=== PATIENT | male | born 1950 | race Caucasian/White ===

== ENCOUNTER → 2019-06-03 13:59 | Outpatient (CLI) | payer MEDICARE, SELFPAY ==
--- NOTE | ~2019-06-03 | XR_ITS ---
EXAMINATION: XR chest 2V EXAM DATE: 06/03/2019 14:09 INDICATION: Encounter for preprocedural exam. TECHNIQUE: Frontal and lateral projections of the chest obtained and reviewed. Comparison is made to prior examination from 12/30/2015. FINDINGS: The lungs are clear. There are no pleural effusions. The cardiomediastinal silhouette is within normal limits. There is no pneumothorax suspected. The bones and soft tissues are unremarkab le. IMPRESSION: No acute cardiopulmonary findings. Reviewed, dictated and finalized at location B. E WORKER
== END ==
PROVIDERS: PCP Family Medicine; Visit Provider Family Medicine
DX: Z01.818 Encounter for other preprocedural examination (principal)
CPT/HCPCS: 71046

== ENCOUNTER 2019-06-11 09:46 | Outpatient (CLI) | payer MEDICARE, SELFPAY ==
--- NOTE | 2019-06-11 10:03 | ECG_ITS ---
Measurements Intervals [place] Rate: 78 P: 23 KS: 173 QRS: 73 QRSD: 103 T: 75 QT: 371 QTc: 424 Interpretive Statements SINUS RHYTHM BORDERLINE T WAVE ABNORMALITY- LATERAL LEADS BORDERLINE ECG Electronically Signed On 06-11-2019 10:25:05 MOLD PRESSER by Harry López D.O.
== END 2019-06-11 09:47 | disposition home or self-care (01) ==
PROVIDERS: PCP Family Medicine; Visit Provider Family Medicine
DX: I10 Essential (primary) hypertension (principal); R94.31 Abnormal electrocardiogram [ECG] [EKG]
CPT/HCPCS: 93005

== ENCOUNTER → 2019-12-26 09:56 | Outpatient (CLI) | payer MEDICARE, SELFPAY ==
--- NOTE | ~2019-12-26 | CT_ITS ---
EXAMINATION: CT abdomen pelvis w con INDICATION: Prostate cancer TECHNIQUE: Computed tomographic images of the abdomen and pelvis were obtained after the administrati on of 100 cc of Omnipaque 350 intravenous contrast. The dose-length product (DLP) was 1021.19 mGy-cm. Automated exposure control and iterative reconstruction technique were employed. COMPARISON: None available FINDINGS: The lung bases are clear. The heart size is normal. The liver, spleen, pancreas, gallbladde r, and adrenal glands are normal. Cysts of the kidneys measure up to 13.9 cm on the left and 2.2 cm o n the right. No pathologically enlarged abdominal or pelvic lymph nodes are identified. There is no f ree intraperitoneal gas or evidence of bowel obstruction. There is calcified atherosclerosis of the a john and many of the other arteries. There are changes of bilateral hip arthroplasty. There is severe lumbar spondylosis at L4-5. IMPRESSION: 1. No evidence of metastatic disease. Reviewed, dictated and finalized at location A.
[2019-12-26 10:21] LABS: Estimated Glomerular Filt Rate > 60
== END ==
PROVIDERS: PCP Family Medicine; Visit Provider Urology
DX: C61 Malignant neoplasm of prostate (principal)
CPT/HCPCS: 74177; Q9967

== ENCOUNTER → 2020-08-10 02:00 | Outpatient (CLI) | payer MEDICARE, SELFPAY ==
[2020-08-10 19:04] LABS: SARS-CoV-2 RNA PCR Negative
== END ==
PROVIDERS: PCP Family Medicine; Visit Provider Internal Medicine Gastroenterology
DX: Z01.812 Encounter for preprocedural laboratory examination (principal); Z20.822 Contact with and (suspected) exposure to COVID-19
CPT/HCPCS: C9803; U0003; U0005

== ENCOUNTER 2020-08-13 01:32 | Day surgery (SDC) | payer MEDICARE, SELFPAY ==
[2020-07-31 14:27] VITALS: BMI 28.9
[2020-08-13 07:36] LABS: Glucose Point of Care 124 (65-105)
[2020-08-13] MEDS: LACTATED RINGERS 1,000 ML 150 ML IV CONT (07:36)
[2020-08-13 07:47] VITALS: BP 143/87; PULSE 70; RESP 18; TEMP 36.3; O2SAT 97; BMI 28.9
--- NOTE | 2020-08-13 07:54 | WPDANESEPPF ---
Anes - Initial Pre Proc Eval Procedure: Operation Date: 08/13/20 09:15 Proposed Procedures p Colonoscopy - Yoandy Soriano DO Date/Time: 08/13/20 07:54 Surgeon: Yoandy Soriano DO Pre Op Diagnosis: Colon polyps Patient Data Age: 69 Gender: M Height: 6 ft Weight: 96.8 kg Last Vital Signs Temp 36.3 C L 08/13/20 07:47 Pulse 70 08/13/20 07:47 Resp 18 08/13/20 07:47 BP 143/87 H 08/13/20 07:47 Pulse Ox 97 08/13/20 07:47 Allergies Allergy/AdvReac Type Severity Reaction Status Date / Time No Known Allergies Allergy Verified 08/13/20 07:18 Home Medications Medication Instructions Recorded Confirmed Type simvastatin 20 mg tablet 20 mg PO DAILY #90 tablet 12/29/19 08/13/20 Rx zolpidem 10 mg tablet 10 mg PO .HS PRN #90 tablet 05/04/20 07/31/20 Rx fluticasone propionate 50 See Rx Instructions .ROUTE 08/10/20 08/13/20 Rx mcg/actuation nasal .COMPLEX #48 gm spray,suspension metformin 500 mg tablet See Rx Instructions .ROUTE 08/10/20 08/13/20 Rx .COMPLEX #360 tablet tramadol 50 mg tablet 50 mg PO Q6H PRN #100 tablet 08/10/20 08/13/20 Rx glimepiride 1 mg PO QAM PRN 08/13/20 07/31/20 History Laboratory Tests 08/13/20 07:31 POC Capillary Glucose 124 mg/dl H mg/dl (65-105) Patient hx anesthesia problems: none Family hx anesthesia problems: none PMFSH Past Medical History Medical History Alcohol abuse Depression Insomnia Obstructive sleep apnea syndrome Pure hypercholesterolemia Squamous cell carcinoma of forehead Family History Family History Father Cerebrovascular accident Family history of lung cancer Patient's father is Family history of malignant neoplasm Mother Carcinoma of colon Family history of malignant neoplasm Sibling Family history of malignant neoplasm Other Diabetes mellitus Family history of arthritis Family history of cardiovascular disease Social History Social History Smoking status: Former smoker Tobacco type: cigarettes Second hand tobacco smoke exposure: No Smoking end date: 04/24/96 Alcohol intake: current Drinks per week: 7 Substance use: never Substance use type: does not use Living arrangements: with family Gender identity (if verbalized by the patient): Male Sexual Orientation (if Verbalized by the Patient): Straight or Heterosexual Spiritual care concerns: No Agree to blood products: Yes Anes - Eval Final PreProcedure Day of Procedure 08/13/20 07:54 Patient weight: overweight Heart: regular rate and rhythm Lungs: clear to auscultation Airway: Mallampati scale class II Neurological: alert and oriented Last oral intake: >/= 8 hours ASA classification: III Emergent: no Anesthetic plan: proceed Anesthesia type and monitoring: general GIVS and standard monitoring Informed Consent: The patient's anesthetic plan and its attendant risks and benefits were discussed with the patient/family/POA. Questions were solicited and answers provided to the satisfaction of the patient/family/POA.
--- NOTE | 2020-08-13 07:56 | WPDGICN ---
GI Consult Note Consult date/time: 08/13/20 07:56 HPI: Reason for visit colonoscopy. This very pleasant gentleman seen in consultation request of the primary physician. Impression: Screening and surveillance colonoscopy. The patient history adenomatous colon polyps and a family history colon cancer. DM. HLD. Neuropathy. Alcohol abuse. Depression. HOMAR. Skin cancer. Recommendation: Colonoscopy. History: Very pleasant gentleman is here for screening and surveillance colonoscopy. He has a history adenomatous colon polyps and a family history colon cancer. GI review systems is negative. Physical examination: General: very pleasant patient in no acute distress. HEENT: Head was normocephalic sclerae is clear mouth without masses neck was supple. Heart: Rate rhythm regular without S3 or S4. Lungs: CTA. Abdomen: Soft with no guarding or rigidity. Bowel sounds were active. Neurologic: Cranial nerves 2 through 12 intact. No focal defects. No clonus. Musculoskeletal system: Revealed no joint tenderness or swelling no muscle atrophy. Extremities: Reveal no significant edema. Skin: Warm and dry with normal turgor. Mental status: intact. Patient is alert and oriented. Review of Systems Review of Systems: All systems reviewed & are unremarkable except as noted in HPI and below PMFSH Past Medical History Medical History Alcohol abuse Depression Insomnia Obstructive sleep apnea syndrome Pure hypercholesterolemia Squamous cell carcinoma of forehead Family History Family History Father Cerebrovascular accident Family history of lung cancer Patient's father is Family history of malignant neoplasm Mother Carcinoma of colon Family history of malignant neoplasm Sibling Family history of malignant neoplasm Other Diabetes mellitus Family history of arthritis Family history of cardiovascular disease Social History Social History Smoking status: Former smoker Tobacco type: cigarettes Second hand tobacco smoke exposure: No Smoking end date: 04/24/96 Alcohol intake: current Drinks per week: 7 Substance use: never Substance use type: does not use Living arrangements: with family Gender identity (if verbalized by the patient): Male Sexual Orientation (if Verbalized by the Patient): Straight or Heterosexual Spiritual care concerns: No Agree to blood products: Yes Meds Home Medications and Allergies Home Medications Medication Instructions Recorded Confirmed Type simvastatin 20 mg tablet 20 mg PO DAILY #90 tablet 12/29/19 08/13/20 Rx zolpidem 10 mg tablet 10 mg PO .HS PRN #90 tablet 05/04/20 07/31/20 Rx fluticasone propionate 50 See Rx Instructions .ROUTE 08/10/20 08/13/20 Rx mcg/actuation nasal .COMPLEX #48 gm spray,suspension metformin 500 mg tablet See Rx Instructions .ROUTE 08/10/20 08/13/20 Rx .COMPLEX #360 tablet tramadol 50 mg tablet 50 mg PO Q6H PRN #100 tablet 08/10/20 08/13/20 Rx glimepiride 1 mg PO QAM PRN 08/13/20 07/31/20 History Allergies Allergy/AdvReac Type Severity Reaction Status Date / Time No Known Allergies Allergy Verified 08/13/20 07:18 Vital Signs Vital Signs - 24 hr 08/13/20 07:47 Temperature 36.3 C L Pulse Rate 70 Respiratory Rate 18 Blood Pressure 143/87 H Pulse Oximetry 97
[2020-08-13 09:17] VITALS: BP 110/63; PULSE 57; RESP 16; O2SAT 96
[2020-08-13 09:29] VITALS: BP 114/80; PULSE 67; RESP 22; O2SAT 98
[2020-08-13 09:37] VITALS: BP 123/75; PULSE 58; RESP 20; O2SAT 97
== END 2020-08-13 09:46 | disposition home or self-care (01) ==
PROVIDERS: PCP Family Medicine; Visit Provider Internal Medicine Gastroenterology
PROC: 0DJD8ZZ Inspection of Lower Intestinal Tract, Via Natural or Artificial Opening Endoscopic (ICD-10-PCS; CPT 45378; principal; 2020-08-13 09:15)
DX: Z12.11 Encounter for screening for malignant neoplasm of colon (principal); K64.8 Other hemorrhoids; Z86.010 Personal history of colon polyps; Z80.0 Family history of malignant neoplasm of digestive organs; E78.5 Hyperlipidemia, unspecified; E11.40 Type 2 diabetes mellitus with diabetic neuropathy, unspecified; F32.9 Major depressive disorder, single episode, unspecified; G47.33 Obstructive sleep apnea (adult) (pediatric); Z87.891 Personal history of nicotine dependence; Z79.84 Long term (current) use of oral hypoglycemic drugs
CPT/HCPCS: G0105; 82948; C9803; J2704; J7120; U0003; U0005

== ENCOUNTER → 2022-06-07 09:57 | Outpatient (CLI) | payer MEDICARE, SELFPAY ==
--- NOTE | ~2022-06-07 | XR_ITS ---
EXAMINATION: XR chest 2V 06/07/2022 10:11 INDICATION: Cough PROCEDURE: 2 view chest COMPARISON: Comparison to multiple prior studies sequentially, with oldest reviewed study dated 03/24. FINDINGS: The lungs are clear. The cardiomediastinal silhouette is within normal limits. There are no pleural effusions. There is no pneumothorax suspected. IMPRESSION: 1: NO ACUTE CARDIOPULMONARY DISEASE. Reviewed, dictated and finalized at location A. [employer] DES[employer]
== END ==
PROVIDERS: PCP Family Medicine; Visit Provider Physician Assistant Medical
DX: R05.9 Cough, unspecified (principal)
CPT/HCPCS: 71046

== ENCOUNTER 2022-11-24 13:01 | Outpatient (CLI) | payer MEDICARE, SELFPAY ==
--- NOTE | ~2022-11-24 | XR_ITS ---
EXAMINATION: XR hand RT min 3V DATE: 11/24/2022 13:25 INDICATION: Right thumb pain. TECHNIQUE: 3 views of right hand were obtained. COMPARISON: None. FINDINGS: Bone alignment is normal. No fracture. There is mild osteoarthritis of first carpometacarpa l joint and some of the metacarpophalangeal joints and interphalangeal joints. There is moderate oste oarthritis of third metacarpophalangeal joint and severe osteoarthritis of first interphalangeal join t and second distal interphalangeal joint. IMPRESSION: 1. Polyarticular osteoarthritis. Reviewed, dictated and finalized at location L.
--- NOTE | ~2022-11-24 | XR_ITS ---
EXAMINATION: XR hand LT min 3V DATE: 11/24/2022 13:25 INDICATION: Left thumb pain. TECHNIQUE: 3 views of left hand were obtained. COMPARISON: Left wrist radiographs 08/07/2017 FINDINGS: Bone alignment is normal. No fracture. There is mild osteoarthritis of triscaphe joint, sev ere osteoarthritis of first carpometacarpal joint, and mild osteoarthritis of many of the metacarpoph alangeal joints and interphalangeal joints. There is severe osteoarthritis of third metacarpophalange al joint and first interphalangeal joint. There is moderate osteoarthritis of second and third distal interphalangeal joints. IMPRESSION: 1. Polyarticular osteoarthritis. Reviewed, dictated and finalized at location L.
== END 2022-11-24 13:02 | disposition home or self-care (01) ==
LOC: ANHIMG 13:04
PROVIDERS: PCP Family Medicine; Visit Provider Plastic Surgery
DX: M79.645 Pain in left finger(s) (principal); M79.644 Pain in right finger(s); M19.042 Primary osteoarthritis, left hand; M19.041 Primary osteoarthritis, right hand
CPT/HCPCS: 73130

== ENCOUNTER → 2023-01-04 09:40 | Outpatient (CLI) | payer MEDICARE, SELFPAY ==
--- NOTE | ~2023-01-04 | XR_ITS ---
EXAMINATION: XR lumbar spine min 4V DATE: 01/04/2023 10:04 INDICATION: Radiculopathy, lumbar region. TECHNIQUE: 5 views of lumbar spine were obtained. COMPARISON: Lumbar spine radiographs 07/31/2014 FINDINGS: There is 8 degrees levocurvature of lumbar spine. There is 3 mm retrolisthesis of L2 on L3. Vertebral body heights are normal. There is severely decreased disc height at L2-L3, mildly decrease d disc height at L4-L5, and severely decreased disc height at L5-S1. There is multilevel facet joint osteoarthritis, severe in lower lumbar spine. There are bilateral total hip arthroplasties. IMPRESSION: 1. Severe lumbar spondylosis, worsened from 07/31/2014. Reviewed, dictated and finalized at location A.
== END ==
PROVIDERS: PCP Family Medicine; Visit Provider Family Medicine
DX: M54.16 Radiculopathy, lumbar region (principal); M43.06 Spondylolysis, lumbar region
CPT/HCPCS: 72110

== ENCOUNTER → 2023-01-07 11:31 | Outpatient (CLI) | payer MEDICARE, SELFPAY ==
--- NOTE | ~2023-01-07 | MR_ITS ---
MRI of the lumbar spine Clinical History: Radiculopathy Technique: Axial T2-weighted images, and sagittal T1-weighted, T2-weighted, and T2 fat-sat images wer e acquired. Findings: There is a 2 mm retrolisthesis of L2 over L3. No acute fracture seen. There is extensive re active marrow edema in the L2 and L3 vertebral bodies, and in the L5 vertebral body, related to under lying degenerative disc disease. At L1-L2, there is no disc bulge or herniation. There is mild to moderate facet arthropathy. No centr al canal stenosis or neural foraminal narrowing. At L2-L3, there is moderate degenerative distended with diffuse disc bulge and moderate to severe fac et arthropathy. There is moderate central canal stenosis/thecal sac compression. There is moderate to severe left neural foraminal narrowing, and mild to moderate right neural foraminal narrowing. At L3-L4, there is mild disc bulge and moderate facet arthropathy. No central canal stenosis. There i s minimal right neural foraminal narrowing. Left neural foramen preserved. At L4-L5, there is disc bulge and severe facet arthropathy, with moderate to severe central canal doug nosis/thecal sac compression. There is moderate right neural foraminal narrowing. Left neural foramen preserved. At L5-S1, there is severe degenerative disc narrowing. There is disc bulge and severe facet arthropat hy. No central canal stenosis. There is moderate to advanced bilateral neural foraminal narrowing. Paravertebral soft tissues are unremarkable. Impression: Severe degenerative spondylosis at L2-L3 and L4-L5, as detailed above. Moderate to advanced degenerative spondylosis at L5-S1. 2 mm retrolisthesis of L2 over L3. Reviewed, dictated and finalized at [facility]. Impression: Severe degenerative spondylosis at L2-L3 and L4-L5, as detailed above. Moderate to advanced degenerative spondylosis at L5-S1. 2 mm retrolisthesis of L2 over L3.
== END ==
PROVIDERS: PCP Family Medicine; Visit Provider Family Medicine
DX: M43.16 Spondylolisthesis, lumbar region (principal); M47.898 Other spondylosis, sacral and sacrococcygeal region
CPT/HCPCS: 72148

== ENCOUNTER 2023-02-09 11:26 | Outpatient (CLI) | payer MEDICARE, SELFPAY ==
--- NOTE | 2023-02-09 11:38 | ECG_ITS ---
Measurements Intervals [place] Rate: 63 P: 14 IN: 161 QRS: 57 QRSD: 87 T: 59 QT: 387 QTc: 398 Interpretive Statements SINUS RHYTHM BASELINE ARTIFACT NORMAL ECG COMPARED TO ECG 06/11/2019 10:09:46 NO SIGNIFICANT CHANGES Electronically Signed On 02-09-2023 17:20:19 CDT by Ke Castro M.D.
== END 2023-02-09 11:27 | disposition home or self-care (01) ==
LOC: ANHSURGERY 11:32
PROVIDERS: PCP Family Medicine; Visit Provider Plastic Surgery
DX: Z01.810 Encounter for preprocedural cardiovascular examination (principal); Z87.891 Personal history of nicotine dependence
CPT/HCPCS: 93005

== ENCOUNTER 2023-02-14 00:21 | Day surgery (SDC) | payer MEDICARE, SELFPAY ==
--- NOTE | 2023-02-07 09:59 | PC.NURSE ---
Report to the Outpatient Waiting Room, entrance under the green pavilion located off [facility], at time ___0700____ on date _02/14/23 . Planned Procedure Time: __0900 . Time changes happen often and if your time is changed the preop area will call you the afternoon before. - You and your visitor will be asked to self-screen and do not enter if you have any COVID symptoms. - A mask is optional within the hospital at this time. -NOTHING TO EAT OR DRINK 8 HOURS PRIOR TO YOUR SURGERY Take the following medications with a SIP of water the morning of surgery: ____GABAPENTIN_AND TRAMADOL IF NEEDED FOR PAIN DO NOT STOP ANY OF YOUR OTHER PRESCRIPTION MEDICATIONS PRIOR TO SURGERY ?EXCEPT THE FOLLOWING Medications to discontinue per physician ___ALL VITAMINS AND SUPPLEMENTS 3 DAYS PRE OP.LAST DOSE 02/10/[address] MCGUIRE____ Please no make-up, nail slovak, hairspray, perfume, deodorant, or body powder the day of surgery. No jewelry (including any body piercings) or valuables the day of surgery, leave them at home. Please take a shower or bath the night before, or the morning of, surgery with an antibacterial soap. Wear comfortable, loose fitting clothing. Children are encouraged to wear pajamas. - Jewelry must be removed prior to entering the operating room. Rings and piercings that are not removed may be cut off. - The hospital will not accept responsibility for valuables. - Please leave all valuables, including medications, at home the day of surgery. If you are going home after surgery, a licensed [employer] company flatbed driver must drive you home. - NO public transportation without another adult if you receive anesthesia. - We recommend that an adult stay with you for 24 hours following discharge. - We also recommend that you do not drive, make important decision, drink alcoholic beverages, or take any drugs that were not prescribed by your health care provider for at least 24 hours after your discharge time. For Pediatric surgeries, we recommend two adults accompany the child home. Follow any additional instructions given to you from your surgeon. If you or anyone in your household have experienced Covid symptoms in the past week, please notify your surgeon or the nurse liaison at the phone number below for possible testing. Telephone instructions given to __PATIENT and asked if any additional questions and then verbalized understanding. Patient advised to call surgeon office or pre surgery nurse liaison [phone] if any additional questions.
[2023-02-07 10:09] VITALS: BMI 28.8
--- NOTE | 2023-02-13 13:41 | WPDANESEPPF ---
Anes - Initial Pre Proc Eval Procedure: Operation Date: 02/14/23 09:00 Proposed Procedures p Left Basal Joint Arthroplasty with Mini TightRope Suspensionplasty and Abductor Pollicis Longus to Extensor Pollicis Brevis Tendon Transfer - Cece Jalloh MD Date/Time: 02/13/23 13:41 Surgeon: Cece Jalloh MD Pre Op Diagnosis: oa involving carpo/nemets joints Patient Data Age: 72 Gender: M Height: 1.83 m Weight: 96.2 kg Allergies Allergy/AdvReac Type Severity Reaction Status Date / Time No Known Allergies Allergy Verified 02/14/23 07:36 Home Medications Medication Instructions Recorded Confirmed Type fluticasone propionate 50 See Rx Instructions .Route 05/30/22 02/07/23 Rx mcg/actuation nasal .COMPLEX #48 grams spray,suspension blood sugar diagnostic (OneTouch #300 strips 07/26/22 01/26/23 Rx Verio test strips) glimepiride 1 mg tablet 1 mg PO QAM PRN Hyperglycemia #90 11/23/22 02/07/23 Rx tabs trazodone 100 mg tablet 200 mg PO QHS PRN insomnia #180 12/14/22 02/07/23 Rx tabs ascorbic acid (vitamin C) 1,000 mg 1 g PO DAILY 02/07/23 02/07/23 History tablet gabapentin 300 mg capsule 300 mg PO QID 02/07/23 02/07/23 History meloxicam 15 mg tablet 15 mg PO BID 02/07/23 02/07/23 History tamsulosin 0.4 mg capsule 0.4 mg PO DAILY 02/07/23 02/07/23 History vitamin B complex 2 cap PO DAILY 02/07/23 02/07/23 History tramadol 50 mg tablet 50 mg PO Q4H PRN pain #100 tabs 02/08/23 Rx metformin 500 mg tablet See Rx Instructions .Route 02/12/23 Rx .COMPLEX #400 tabs Patient hx anesthesia problems: none Family hx anesthesia problems: none Results Review: All pre-operative results and documents have been reviewed as part of the pre-operative evaluation. [facility] Past Medical History Medical History (Updated 02/13/23 @ 13:41 by Aguilar Bobby DO) Alcohol abuse Depression Diabetes type 2, controlled DJD of right shoulder Encounter for immunization H/O squamous cell carcinoma Insomnia Obstructive sleep apnea syndrome Prostate cancer Pure hypercholesterolemia Squamous cell carcinoma of forehead Viral syndrome Surgical History Surgical History (Updated 02/06/23 @ 10:19 by Karina Celestin [facility]) History of meniscectomy of left knee (~2017) History of total left hip arthroplasty (~2019) History of total right hip arthroplasty (~2018) Family History Family History Father Cerebrovascular accident Family history of lung cancer Patient's father is Family history of malignant neoplasm Mother Carcinoma of colon Family history of malignant neoplasm Sibling Family history of malignant neoplasm Other Diabetes mellitus Family history of arthritis Family history of cardiovascular disease Social History Social History (Updated 02/06/23 @ 10:19 by Karina Celestin [facility]) Smoking packs per day: 1 Smoking cigarettes per day: 20.0 Years smoked: 30 Smoking pack-years: 30.00 Smoking status: Former smoker Tobacco type: cigarettes Second hand tobacco smoke exposure: No Smoking end date: 04/24/97 Alcohol intake: current Drinks per week: 4 Substance use: current Substance use type: marijuana Last use: 02/06/23 Lack of Transportation: No Lack of Food: Sometimes True Current Housing: I Have Housing Concerned About Future Housing: No Difficulty Paying Gas/Electric Bills: YES Difficulty Paying for Meds: YES Currently Unemployed: No Education: Associate Degree Difficulty w/ Childcare or Family Care: YES Living arrangements: with family Occupation/Education: retired Gender identity (if verbalized by the patient): Male Sexual Orientation (if Verbalized by the Patient): Straight or Heterosexual Spiritual care concerns: No Agree to blood products: Yes Anes - Eval Final PreProcedure Day of Procedure 02/13/23 13:41 Patient weight: overweig
[2023-02-14] VITALS (13 sets, daily range): BP systolic 105–153; BP diastolic 51–72; PULSE 57–68; RESP 10–19; TEMP 36.3; O2SAT 92–100
--- NOTE | ~2023-02-14 | XR_ITS ---
EXAMINATION: XR surgery orthopedic DATE: 02/14/2023 10:15 INDICATION: Thumb pain for first carpal metacarpal suspension arthroplasty. TECHNIQUE: 2 fluoroscopic images of the hand, reportedly left hand however markers are not included o n the provided images, were obtained during procedure performed by Dr. Jalloh. Radiologist was no t present for the imaging or procedure. The amount of fluoroscopy time used during this procedure was 0.2 minutes. COMPARISON: Radiographs dated 11/24/2022 FINDINGS: Initial image demonstrates the tip of a now metallic instrument projecting over the distal margin of the trapezium between the bases of the first and second metacarpals. Subsequent image demonstrates re section of the trapezium with metallic buttons on the dorsal/radial margin of the base of the first m etacarpal and dorsal/ulnar side of the base of the second metacarpal for likely first carpal metacarp al suspension arthroplasty. No fractures identified. IMPRESSION: 1. Fluoroscopy was utilized during resection of the left trapezium and first carpal metacarpal suspen shreya arthroplasty. See procedure note for further detail. Reviewed, dictated and finalized at location A. IMPRESSION: 1. Fluoroscopy was utilized during resection of the left trapezium and first ca rpal metacarpal suspension arthroplasty. See procedure note for further detail.
[2023-02-14] MEDS: LACTATED RINGERS 1,000 ML 30 ML IV CONT ×2 (07:00→10:26)
[2023-02-14 07:29] LABS: Glucose Point of Care 99 mg/dl (65-105)
--- NOTE | 2023-02-14 08:24 | WPDHPUPDATE1 ---
History and Physical Update Update Date/Time: 02/14/23 08:24 Patient seen and examined in pre-operative holding area. No interval change in medical history or symptoms. Continues to desire to proceed with left basal joint arthroplasty with mini-tightrope suspensionplasty possible tendon transfer . Reviewed procedure, post-op expectations and risks including but not limited to bleeding, infection, injury to tendon/nerve/vessel, decreased hand function, stiffness, RSD, no change or worsening of symptoms, hardware complications. Patient stated understanding and signed the consent form wishing to proceed.
--- NOTE | 2023-02-14 08:25 | P.OP_ITS ---
Procedure Note - Detailed Date of Procedure 02/14/23 Pre-op Diagnosis left basal joint arthritis Post-op Diagnosis Same Procedure Performed left basal joint arthroplasty with mini-tightrope suspensionplasty Surgeon Cece Jalloh MD [employer]olding Machine Operator Maggi Valentin PA-C Anesthesia General Description of Procedure The patient was seen and examined in the pre-op holding area. The left thumb was marked and consent signed. He was taken back to the operating room on the stretcher in the supine position. Time-out was performed with Anesthesia, surgeon, and staff agreeing on patient's name site surgery to be performed. SCDs were placed on the lower extremities and inflated. A tourniquet was placed on the left upper extremity. Antibiotics were given IV. After general anesthesia was administered the left upper extremity was prepped and draped in usual sterile fashion. The left upper extremity was then exsanguinated with Esmarch bandage and tourniquet inflated to 250 mmHg. Proceeded with making a longitudinal incision over the left 1st CMC joint on the dorsal radial aspect through skin and the dermis with a 15 blade scalpel. I proceeded with spreading to the subcutaneous tissue with the Littler scissors retracting the extensor tendons going down to the capsule. I made an incision in the capsule reflected the capsule over the trapezium. Mini C-arm was used to verify the location and that this was in fact the trapezium. I then proceeded with total trapeziectomy. This was verified with the mini C-arm fluoroscopy next I proceeded with making a dorsal incision over the base of the 2nd metacarpal there is skin into the dermis with a 15 blade scalpel. Littler scissors were used to spread down to the periosteum. An incision was made in the periosteum which was reflected on the ulnar aspect of the 2nd metacarpal base. Now I was able to use the Arthrex double gauge K-wire to go in an ulnar to radial direction from the 2nd metacarpal base and out of the radial aspect of the thumb metacarpal placement of the wire was verified a mini C-arm in good position I then proceeded with placing the mini tight rope per usual procedure. Once secured the thumb was evaluated under mini C-arm fluoroscopy there was no subsidence of the thumb metacarpal and maintenance of the space where the trapezium was excised. There was near full range of motion of the thumb. I irrigated with normal saline and proceeded with closure of the capsule using 3-0 Vicryl suture. This was also used to secure the periosteum over the button on the 2nd metacarpal 4-0 nylon was used to close the skin I injected 6 cc of 1% lidocaine with epinephrine and 0.5% Marcaine plain for local regional anesthesia. A dressing of Xeroform 4 x 4 Nataly and thumb spica splint and Emil bandage was then applied after the tourniquet was let down noting that the thumb was warm and well perfused. The patient was awakened from anesthesia and transferred to the recovery room in stable condition. Complications: None Estimated blood loss: 3 cc Disposition: Patient tolerated the procedure well will be going home later today Maggi Valentin PA-C was essential for positioning, retraction, fluoroscopy, closure and dressing placement [facility] [place] [facility] - Charge Forward: Surgery Billing ([id number]. [id number] for Maggi linn)
[2023-02-14] MEDS: ceFAZolin 2 GM/D5W 50 ML 2 GM/50 ML BAG IVPB (08:49)
--- NOTE | 2023-02-14 08:53 | PM.HPGS ---
History of Present Illness History of Present Illness Consent: Risks, benefits, and alternatives have been discussed and questions answered. Patient agrees to proceed with procedure. Chief complaint: oa involving carpo/nemets joints Narrative: Kunal Pearce is a 72 year old male needing H&P in addition to update to proced with surgery Review of Systems Review of Systems: no change and wnl Cardiovascular: Comments: RRR Respiratory: Comments: [facility] Past Medical History Medical History (Updated 02/13/23 @ 13:41 by Aguilar Bobby DO) Alcohol abuse Depression Diabetes type 2, controlled DJD of right shoulder Encounter for immunization H/O squamous cell carcinoma Insomnia Obstructive sleep apnea syndrome Prostate cancer Pure hypercholesterolemia Squamous cell carcinoma of forehead Viral syndrome Surgical History Surgical History (Updated 02/06/23 @ 10:19 by Karina Celestin [facility]) History of meniscectomy of left knee (~2017) History of total left hip arthroplasty (~2019) History of total right hip arthroplasty (~2018) Family History Family History Father Cerebrovascular accident Family history of lung cancer Patient's father is Family history of malignant neoplasm Mother Carcinoma of colon Family history of malignant neoplasm Sibling Family history of malignant neoplasm Other Diabetes mellitus Family history of arthritis Family history of cardiovascular disease Social History Social History (Updated 02/06/23 @ 10:19 by Karina Celestin [facility]) Smoking packs per day: 1 Smoking cigarettes per day: 20.0 Years smoked: 30 Smoking pack-years: 30.00 Smoking status: Former smoker Tobacco type: cigarettes Second hand tobacco smoke exposure: No Smoking end date: 04/24/97 Alcohol intake: current Drinks per week: 4 Substance use: current Substance use type: marijuana Last use: 02/06/23 Lack of Transportation: No Lack of Food: Sometimes True Current Housing: I Have Housing Concerned About Future Housing: No Difficulty Paying Gas/Electric Bills: YES Difficulty Paying for Meds: YES Currently Unemployed: No Education: Associate Degree Difficulty w/ Childcare or Family Care: YES Living arrangements: with family Occupation/Education: retired Gender identity (if verbalized by the patient): Male Sexual Orientation (if Verbalized by the Patient): Straight or Heterosexual Spiritual care concerns: No Agree to blood products: Yes Meds Home Medications and Allergies Home Medications Medication Instructions Recorded Confirmed Type fluticasone propionate 50 See Rx Instructions .Route 05/30/22 02/07/23 Rx mcg/actuation nasal .COMPLEX #48 grams spray,suspension blood sugar diagnostic (OneTouch #300 strips 07/26/22 01/26/23 Rx Verio test strips) glimepiride 1 mg tablet 1 mg PO QAM PRN Hyperglycemia #90 11/23/22 02/07/23 Rx tabs trazodone 100 mg tablet 200 mg PO QHS PRN insomnia #180 12/14/22 02/07/23 Rx tabs ascorbic acid (vitamin C) 1,000 mg 1 g PO DAILY 02/07/23 02/07/23 History tablet gabapentin 300 mg capsule 300 mg PO QID 02/07/23 02/07/23 History meloxicam 15 mg tablet 15 mg PO BID 02/07/23 02/07/23 History tamsulosin 0.4 mg capsule 0.4 mg PO DAILY 02/07/23 02/07/23 History vitamin B complex 2 cap PO DAILY 02/07/23 02/07/23 History tramadol 50 mg tablet 50 mg PO Q4H PRN pain #100 tabs 02/08/23 Rx metformin 500 mg tablet See Rx Instructions .Route 02/12/23 Rx .COMPLEX #400 tabs Allergies Allergy/AdvReac Type Severity Reaction Status Date / Time No Known Allergies Allergy Verified 02/14/23 07:36 Vital Signs Vital Signs - 24 hr 02/14/23 07:00 Temperature 36.3 C L Pulse Rate 61 Respiratory Rate 18 Blood Pressure 153/70 H Pulse Oximetry 100 Oxygen Delivery Room Air Assessment and Plan Assessment a
[2023-02-14] MEDS: LIDO 1%/EPINEPHRINE 1:100,000 50 ML VIAL 10 ML INFILTRATE (08:59)
[2023-02-14] MEDS: BACITRACIN OINTMENT 15 GM TUBE 1 APPLIC TOPICAL (08:59)
[2023-02-14] MEDS: BUPivacaine HCL 0.5% 10 ML AMP INFILTRATE (08:59)
[2023-02-14 10:23] LABS: Glucose Point of Care 140 mg/dl (65-105)
--- NOTE | 2023-02-14 11:29 | SUR.PHASEI ---
1120: aware that patient is still sedated after being in PACU about an hour. All vitals are stable.
[2023-02-14] MEDS: fentaNYL CITRATE INJ (*CRX) 100 MCG/2 ML VIAL 25 MCG IV PUSH (11:40)
--- NOTE | 2023-02-14 11:41 | SUR.PHASEI ---
1135: Simple mask removed.
[2023-02-14] MEDS: oxyCODONE HCL (*CRX) 5 MG TAB IR PO (12:25)
== END 2023-02-14 13:12 | disposition home or self-care (01) ==
PROVIDERS: PCP Family Medicine; Visit Provider Plastic Surgery
PROC: (CPT 25447; principal; 2023-02-14 09:00)
DX: M18.12 Unilateral primary osteoarthritis of first carpometacarpal joint, left hand (principal); E11.9 Type 2 diabetes mellitus without complications; E78.00 Pure hypercholesterolemia, unspecified; G47.33 Obstructive sleep apnea (adult) (pediatric); F32.A Depression, unspecified; Z85.46 Personal history of malignant neoplasm of prostate; Z79.84 Long term (current) use of oral hypoglycemic drugs; Z87.891 Personal history of nicotine dependence; F12.90 Cannabis use, unspecified, uncomplicated
CPT/HCPCS: 25447; 82948; 88309; 88311; 93005; 99199; A9270; J0360; J0690; J1100; J2405; J2704; J3010; J7120

== ENCOUNTER 2023-02-28 12:17 | Outpatient (CLI) | payer MEDICARE, SELFPAY ==
--- NOTE | ~2023-02-28 | XR_ITS ---
EXAM: XR hand LT min 3V DATE: 02/28/2023 12:44 HISTORY: FOLLOW FROM SURGERY ON 02/14/23, LEFT HAND . COMPARISON: None available. FINDINGS: Normal mineralization. No fracture or dislocation. No lytic or blastic lesion. Mild and mo derate degrees of polyarticular osteoarthritis in the wrist and hand. Status post trapezium resection . Soft tissue anchor buttons bridge the proximal aspect of the first and second metacarpals. No erosi on or periosteal change. Osseous fragments noted along the lateral margin of the wrist at the resecti on site. IMPRESSION: Expected postsurgical changes, with no radiographic evidence of procedure or hardware rel ated complication. Reviewed, dictated and finalized at location K. T STACKER IMPRESSION: Expected postsurgical changes, with no radiographic evidence of pro cedure or hardware related complication.
== END 2023-02-28 12:18 | disposition home or self-care (01) ==
PROVIDERS: PCP Family Medicine; Visit Provider Physician Assistant Surgical
DX: M18.0 Bilateral primary osteoarthritis of first carpometacarpal joints (principal)
CPT/HCPCS: 73130

== ENCOUNTER 2023-03-30 14:20 | Outpatient (CLI) | payer MEDICARE, SELFPAY ==
--- NOTE | ~2023-03-30 | MR_ITS ---
EXAMINATION: MR cervical spine wo con DATE: 03/30/2023 15:56 INDICATION: Neck pain. TECHNIQUE: Magnetic resonance imaging (MRI) of the cervical spine was performed without intravenous c ontrast. COMPARISON: None FINDINGS: There is 2 mm retrolisthesis of C5 on C6. Vertebral body heights are normal. There is mildl y decreased disc height at C4-C5, moderately decreased disc height at C5-C6, and severely decreased d isc height at C6-C7. There is increased T2-weighted signal intensity in the spinal cord at C5-C6 on t he right, consistent with myelomalacia. The following disc levels are specifically discussed: C2-C3: The disc does not extend beyond the endplate margin. There is mild right uncovertebral joint o steoarthritis. There is severe bilateral facet joint osteoarthritis. There is mild right neural joyce inal stenosis. There is no central canal stenosis. C3-C4: The disc does not extend beyond the endplate margin. There is moderate bilateral uncovertebral joint osteoarthritis. There is moderate left facet joint osteoarthritis. There is moderate hypertrop hy of right facet joint with facet joint effusion. There is moderate right and mild left neural joyce inal stenosis. There is no central canal stenosis. C4-C5: There is a central protrusion. There is moderate bilateral uncovertebral joint osteoarthritis. There is severe right and mild left facet joint osteoarthritis. There is severe right and mild left neural foraminal stenosis. There is mild central canal stenosis. C5-C6: The disc is bulging. There is severe bilateral uncovertebral joint osteoarthritis. There is mi ld bilateral facet joint osteoarthritis. There is moderate right and severe left neural foraminal doug nosis. There is mild central canal stenosis. C6-C7: The disc is bulging. There is severe bilateral uncovertebral joint osteoarthritis. There is se deondre bilateral facet joint osteoarthritis. There is mild bilateral neural foraminal stenosis. There i s no central canal stenosis. C7-T1: The disc does not extend beyond the endplate margin. There is no uncovertebral joint osteoarth ritis. There is severe right and moderate left facet joint osteoarthritis. There is mild bilateral ne ural foraminal stenosis. There is no central canal stenosis. IMPRESSION: 1. Severe cervical spondylosis. 2. 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 Reviewed, dictated and finalized at location E. OR OPERATOR
== END 2023-03-30 14:21 | disposition home or self-care (01) ==
PROVIDERS: PCP Family Medicine; Visit Provider Family Medicine
DX: M47.812 Spondylosis without myelopathy or radiculopathy, cervical region (principal); G95.89 Other specified diseases of spinal cord
CPT/HCPCS: 72141

== ENCOUNTER 2023-04-03 12:05 | Outpatient (CLI) | payer MEDICARE, SELFPAY ==
--- NOTE | ~2023-04-03 | XR_ITS ---
Left Hand Technique: PA, oblique, and lateral views were obtained. Clinical History: Postoperative, osteoarthritis COMPARISON: 02/28/2023 Findings: No acute fracture or dislocation is seen. Patient is status post resection of the trapezium . Stable orthopedic hardware at the base of the first and second metacarpals. There is mild degenerat uzma change of the distal scaphoid. There is mild degenerative change of the second and third finger i nterphalangeal joints. Soft tissues are unremarkable. Impression: No acute abnormality. Status post resection of the trapezium. Stable postoperative appearance/change. Stable mild degenerative changes. Reviewed, dictated and finalized at location . SPRAYER Impression: No acute abnormality. Status post resection of the trapezium. Stable postoperative appearance/change. Stable mild degenerative changes.
== END 2023-04-03 12:06 | disposition home or self-care (01) ==
PROVIDERS: PCP Family Medicine; Visit Provider Physician Assistant Surgical
DX: M18.0 Bilateral primary osteoarthritis of first carpometacarpal joints (principal)
CPT/HCPCS: 73130

== ENCOUNTER 2023-04-04 06:11 | Day surgery (SDC) | payer MEDICARE, SELFPAY ==
[2023-03-30 13:53] VITALS: BMI 25.7
--- NOTE | ~2023-04-04 | XR_ITS ---
EXAMINATION: XR fluoroscopy no charge INDICATION: Left L4-5 and L5-S1 transforaminal injection TECHNIQUE: 187 intraoperative fluoroscopic images are submitted for review. Total fluoroscopic time w as 59.7 seconds. COMPARISON: None available FINDINGS: Fluoroscopic images demonstrate transforaminal injections at L4-5 and L5-S1. Please refer t o procedure note for full details. IMPRESSION: 1. Please refer to procedure note for full details. Reviewed, dictated and finalized at location L. US RECRUITING COORDINATOR
--- NOTE | 2023-04-04 05:33 | WPDHPUPDATE1 ---
History and Physical Update Update Date/Time: 04/04/23 05:33 History and Physical has been reviewed, including an updated exam of the patient. There are NO changes in the patient's condition. Risks, benefits, and alternatives have been discussed and questions answered. Patient agrees to proceed with procedure.
[2023-04-04 07:45] VITALS: BP 135/94; PULSE 64; RESP 20; TEMP 37.1; O2SAT 95
[2023-04-04 09:20] VITALS: BP 154/68; PULSE 60; RESP 16; O2SAT 97
[2023-04-04 09:28] VITALS: BP 162/68; PULSE 52; RESP 12; O2SAT 99
[2023-04-04] MEDS: LIDOCAINE HCL 1% PF INJ 5 ML VIAL 2 ML XX (09:30)
--- NOTE | 2023-04-04 09:35 | W.PM.PROC2 ---
Procedure Note - Detailed Date of Procedure 04/04/23 Pre-op Diagnosis Lumbar Spinal Stenosis, Lumbosacral radiculopathy Post-op Diagnosis Same Procedure Performed left L4-5, L5-S1 transforaminal epidural steroid injection under fluoroscopic guidance. Surgeon Mynor Baker MD Anesthesia Local Description of Procedure INFORMED CONSENT: Risks, benefits and alternatives to the procedure were discussed in detail with the patient who expressed explicit understanding and consent to proceed. Patient was informed verbally and in written form regarding the risks associated with the procedure including the low risk of serious infection, bleeding/bruising, allergic reaction, nerve or organ injury, paralysis, procedural site pain or discomfort, worsening pain and/or mobility, failure to treat and/or disfigurement. The patient expressed explicit understanding and consent to proceed. All materials required for the procedure were available prior to procedure start. Site and side was marked prior to procedure and confirmed in the presence of the patient. PROCEDURE IN DETAIL: The patient was brought to the procedural suite and placed in the prone position. Patient was made comfortable with use of pillows under the head/chest, hips and ankles. Skin overlying the injection site was prepared broadly with ChloraPrep applicator and draped in a sterile manner. Aseptic technique was employed throughout. The endplates of the vertebral body at the site of interest were aligned in the AP view. Ipsilateral oblique angulation was utilized to better visualize the neuroforamen of interest. Local anesthesia was established by infiltration with approximately 5 mL of 2% lidocaine via a 1-1/2 inch 27-gauge needle. A 22-gauge 3.5 inch Gage (pencil point) spinal needle was advanced until the needle approached the 6 o'clock position on the pedicle just superior to the exiting nerve root. on the Left at L4-5. Lateral view was utilized to confirm appropriate position of the needle tip within the superior and posterior portion of the respective foramen. In an AP view, 1 mL of Omnipaque 300 contrast medium was injected after negative aspiration for CSF, blood or other bodily fluid, showing appropriate neurogram without evidence of intravascular or intrathecal spread of contrast. Digital subtraction imaging was used with an additional 1ml of the same contrast medium to confirm absence of intravascular contrast spread. A 1mL solution containing 5 mg of dexamethasone was injected after negative repeat aspiration. Appropriate spread of the injectate was confirmed with washout of previously injected contrast. No parasthesias were elicited. Needle was removed completely intact without difficulty. The same exact procedure was repeated for all remaining levels on the ipsilateral side, left L5-S1 neuroforamen, modified as necessary to accommodate for the new target location with identical findings and results and no evidence of complication. Images were saved and documented in the patient chart. Patient's skin was cleaned and sterile bandage applied. The patient tolerated the procedure well. The patient was transported to the recovery area in stable condition where they were observed for an appropriate amount of time prior to discharge, without evidence of complication. The patient was instructed to avoid excessive activity for the next 48 hours, including climbing and frequent use of stairs. Showers only for 48 hours. They were instructed not to drive or operate heavy machinery for 24 hours. They are to monitor for severe headaches, fevers, chills, night sweats, erythema/swelling at the site or any other signs of infection, bleeding/bruising, bowel or bladder changes as well as new pain, weakness or numbness in the upper or lower extremity. Should they notice these changes, they are instructed to call our office immediately or report directly to the nearest Emergency Department if no answer or if after posted o
[2023-04-04] MEDS: LIDOCAINE HCL 2% PF INJ 5 ML VIAL 2 ML INFILTRATE (09:36)
[2023-04-04 09:45] VITALS: BP 142/77; PULSE 58; RESP 16; O2SAT 96
== END 2023-04-04 10:01 | disposition home or self-care (01) ==
PROVIDERS: PCP Family Medicine; Visit Provider Anesthesiology Pain Medicine
PROC: (CPT 64483; principal; 2023-04-04 08:30)
DX: M48.061 Spinal stenosis, lumbar region without neurogenic claudication (principal); M54.16 Radiculopathy, lumbar region
CPT/HCPCS: 64483; 64484; 99199

== ENCOUNTER 2023-06-27 09:27 | Day surgery (SDC) | payer MEDICARE, SELFPAY ==
--- NOTE | ~2023-06-27 | XR_ITS ---
EXAMINATION: XR fluoroscopy no charge DATE: 06/27/2023 13:16 INDICATION: Lumbosacral radiculopathy TECHNIQUE: 50 fluoroscopic images of the lumbar spine were obtained during procedure performed by Dr. Baker. Radiologist was not present for the imaging or procedure. The amount of fluoroscopy time used during this procedure was 0.2 minutes. COMPARISON: None. FINDINGS/IMPRESSION: Images demonstrate a pair of spinal needles advanced with distal tip projecting along the caudal miley in of the left L4 and L5 pedicles at the posterior superior margin of the neural foramina for the exi ting L4 and L5 nerve roots with perineural spread of a small amount of injected contrast. See procedu re note for further detail. Reviewed, dictated and finalized at location A. PARTUM NURSE
[2023-06-27 10:03] VITALS: BP 157/73; PULSE 60; RESP 14; TEMP 36.3; O2SAT 99
--- NOTE | 2023-06-27 10:31 | WPDHPUPDATE1 ---
History and Physical Update Update Date/Time: 06/27/23 10:31 History and Physical has been reviewed, including an updated exam of the patient. There are NO changes in the patient's condition. Risks, benefits, and alternatives have been discussed and questions answered. Patient agrees to proceed with procedure.
--- NOTE | 2023-06-27 10:32 | W.PM.PROC2 ---
Procedure Note - Detailed Date of Procedure 06/27/23 Pre-op Diagnosis Lumbosacral Radiculopathy, Lumbar spinal stenosis Post-op Diagnosis Same Procedure Performed left L4-5, L5-S1 transforaminal epidural steroid injection under fluoroscopic guidance with contrast control. Surgeon Mynor Baker MD Anesthesia Local Description of Procedure INFORMED CONSENT: Risks, benefits and alternatives to the procedure were discussed in detail with the patient who expressed explicit understanding and consent to proceed. Patient was informed verbally and in written form regarding the risks associated with the procedure including the low risk of serious infection, bleeding/bruising, allergic reaction, nerve or organ injury, paralysis, procedural site pain or discomfort, worsening pain and/or mobility, failure to treat and/or disfigurement. The patient expressed explicit understanding and consent to proceed. All materials required for the procedure were available prior to procedure start. Site and side was marked prior to procedure and confirmed in the presence of the patient. PROCEDURE IN DETAIL: The patient was brought to the procedural suite and placed in the prone position. Patient was made comfortable with use of pillows under the head/chest, hips and ankles. Skin overlying the injection site was prepared broadly with ChloraPrep applicator and draped in a sterile manner. Aseptic technique was employed throughout. The endplates of the vertebral body at the site of interest were aligned in the AP view. Ipsilateral oblique angulation was utilized to better visualize the neuroforamen of interest. Local anesthesia was established by infiltration with approximately 5 mL of 2% lidocaine via a 1-1/2 inch 27-gauge needle. A 22-gauge 5.0 inch Gage (pencil point) spinal needle was advanced until the needle approached the 6 o'clock position on the pedicle just superior to the exiting nerve root. on the left at L4-5. Lateral view was utilized to confirm appropriate position of the needle tip within the superior and posterior portion of the respective foramen. In an AP view, 1 mL of Omnipaque 300 contrast medium was injected after negative aspiration for CSF, blood or other bodily fluid, showing appropriate neurogram without evidence of intravascular or intrathecal spread of contrast. Digital subtraction imaging was used with an additional 1ml of the same contrast medium to confirm absence of intravascular contrast spread. A 1mL solution containing 6 mg of betamethasone was injected after negative repeat aspiration. Appropriate spread of the injectate was confirmed with washout of previously injected contrast. No parasthesias were elicited. Needle was removed completely intact without difficulty. The same exact procedure was repeated for all remaining levels on the ipsilateral side, left L5-S1 neuroforamen, modified as necessary to accommodate for the new target location with identical findings and results and no evidence of complication. Images were saved and documented in the patient chart. Patient's skin was cleaned and sterile bandage applied. The patient tolerated the procedure well. The patient was transported to the recovery area in stable condition where they were observed for an appropriate amount of time prior to discharge, without evidence of complication. The patient was instructed to avoid excessive activity for the next 48 hours, including climbing and frequent use of stairs. Showers only for 48 hours. They were instructed not to drive or operate heavy machinery for 24 hours. They are to monitor for severe headaches, fevers, chills, night sweats, erythema/swelling at the site or any other signs of infection, bleeding/bruising, bowel or bladder changes as well as new pain, weakness or numbness in the upper or lower extremity. Should they notice these changes, they are instructed to call our office immediately or report directly to the nearest Emergency Department if no an
[2023-06-27 10:43] VITALS: BP 173/79; PULSE 53; RESP 9; O2SAT 98
[2023-06-27 10:51] VITALS: BP 177/82; PULSE 62; RESP 10; O2SAT 99
[2023-06-27] MEDS: BETAMETHASONE SODIUM PHOSPHATE PF INJ 6 MG/ML VIAL INFILTRATE (10:54)
[2023-06-27 10:55] VITALS: BP 159/67; PULSE 52; RESP 15; O2SAT 100
--- NOTE | 2023-06-27 14:20 | SUR.PHASEII ---
Late note 1118 Pt in hurry to leave uninterested in instructions and refused wheelchair and walked out with cane
== END 2023-06-27 11:18 | disposition home or self-care (01) ==
PROVIDERS: PCP Family Medicine; Visit Provider Anesthesiology Pain Medicine
PROC: (CPT 64483; principal; 2023-06-27 11:00)
DX: M54.17 Radiculopathy, lumbosacral region (principal); M48.061 Spinal stenosis, lumbar region without neurogenic claudication
CPT/HCPCS: 64483; 64484; 99199

== ENCOUNTER 2023-07-14 11:20 | Outpatient (CLI) | payer MEDICARE, MEDICAID, SELFPAY ==
--- NOTE | ~2023-07-14 | XR_ITS ---
Clinical Indication: Spinal stenosis PA and lateral views of the chest: Comparison: 06/07/2022 Findings: The lungs are clear, without evidence of focal consolidation or pleural effusion. Cardiome diastinal silhouette is within normal limits. Bones and soft tissues are unremarkable. Impression: Normal chest. Reviewed, dictated and finalized at location . Impression: Normal chest.
--- NOTE | 2023-07-14 12:03 | ECG_ITS ---
Measurements Intervals [place] Rate: 51 P: 31 MI: 191 QRS: 71 QRSD: 95 T: 66 QT: 444 QTc: 413 Interpretive Statements SINUS BRADYCARDIA BORDERLINE ECG COMPARED TO ECG 02/09/2023 11:47:07 SINUS BRADYCARDIA NOW PRESENT Electronically Signed On 07-14-2023 12:10:49 CDT by Harry López D.O.
[2023-07-14 12:06] LABS: Eosinophils Absolute Auto 0.2 K/mm3 (0-0.3); Eosinophils Percent Auto 5.7 % (0-4.4); Hematocrit 36.7 % (42.0-52.0); Hemoglobin 12.2 g/dL (14.0-18.0); Immature Granulocyte Absolute 0.02 K/mm3 (0.00-0.031); Immature Granulocyte Percent A 0.5 % (0-0.5); Lymphocytes Absolute Auto 0.81 K/mm3 (0.9-3.2); Lymphocytes Percent Auto 19.9 % (18.3-44.2); Mean Corpuscular HGB Conc 33.2 g/dl (32-36); Mean Corpuscular Hemoglobin 31.4 pg (26-34); Mean Corpuscular Volume 94.6 fl (80-100); Mean Platelet Volume 8.4 fl (7.4-10.4); Monocytes Absolute Auto 0.3 K/mm3 (0.1-0.6); Monocytes Percent Auto 8.4 % (2.6-8.5); Neutrophils Absolute Auto 2.6 K/mm3 (1.3-6.7); Neutrophils Percent Auto 64.5 % (45.5-73.1); Platelet Count Result 172 k/mm3 (150-375); Red Blood Count 3.88 M/mm3 (4.6-6.20); Red Cell Distribution Width 12.3 % (11.5-14.5); White Blood Count 4.1 K/mm3 (4.5-10.0)
[2023-07-14 12:18] LABS: INR 0.9; Prothrombin Time 12.3 Seconds (11.1-14.7)
[2023-07-14 12:19] LABS: Partial Thromboplastin Time 30.2 Seconds (22.3-36.8)
[2023-07-14 12:33] LABS: Alanine Aminotransferase 17 U/L (6-50); Alkaline Phosphatase 85 U/L (38-126); Anion Gap 1 mmol/L (8-16); Aspartate Amino Transferase 23 U/L (17-59); Bilirubin,Total 0.3 mg/dL (0.2-1.3); Blood Urea Nitrogen 18 mg/dL (9-20); Calcium 9.1 mg/dL (8.4-10.2); Carbon Dioxide 31 mmol/L (22-30); Chloride 104 mmol/L (98-107); Estimated Glomerular Filt Rate > 60; Glucose 112 mg/dL (65-110); Potassium 4.4 mmol/L (3.4-5.0); Sodium 136 mmol/L (137-145)
== END 2023-07-14 11:21 | disposition home or self-care (01) ==
PROVIDERS: PCP Family Medicine; Visit Provider Anesthesiology Pain Medicine
DX: R53.83 Other fatigue (principal); M48.062 Spinal stenosis, lumbar region with neurogenic claudication; F10.10 Alcohol abuse, uncomplicated
CPT/HCPCS: 36415; 71046; 80053; 85025; 85610; 85730; 93005

== ENCOUNTER 2023-07-25 07:55 | Day surgery (SDC) | payer MEDICARE, SELFPAY ==
[2023-07-14 12:59] VITALS: BMI 28.7
--- NOTE | 2023-07-24 10:37 | WPDANESEPPF ---
Anes - Initial Pre Proc Eval Procedure: Operation Date: 07/25/23 08:30 Proposed Procedures p Bilateral L2-3, L4-5 Minimally Invasive Lumbar Decompression under Fluoroscopic Guidance with Contrast Control, Possible Epidurogram - Mynor Baker MD Date/Time: 07/24/23 10:37 Surgeon: Mynor Baker MD Pre Op Diagnosis: Lumbar Spinal Stenosis Patient Data Age: 72 Gender: M Height: 1.83 m Weight: 96 kg Allergies Allergy/AdvReac Type Severity Reaction Status Date / Time No Known Allergies Allergy Verified 07/14/23 12:56 Home Medications Medication Instructions Recorded Confirmed Type fluticasone propionate 50 See Rx Instructions .Route 05/30/22 07/14/23 Rx mcg/actuation nasal .COMPLEX #48 grams spray,suspension ascorbic acid (vitamin C) 1,000 mg 1 g PO DAILY 02/07/23 07/14/23 History tablet vitamin B complex 2 cap PO DAILY 02/07/23 07/14/23 History simvastatin 20 mg tablet 20 mg PO DAILY #90 tabs 03/22/23 07/14/23 Rx tamsulosin 0.4 mg capsule 0.4 mg PO BID 03/28/23 07/14/23 History blood sugar diagnostic (OneTouch #300 strips 05/07/23 Rx Verio test strips) zolpidem 10 mg tablet 10 mg PO .HS PRN insomnia #90 tabs 05/16/23 07/14/23 Rx nabumetone 750 mg tablet 750 mg PO BID #180 tabs 05/23/23 07/14/23 Rx trazodone 100 mg tablet 200 mg PO QHS PRN insomnia #180 06/07/23 07/14/23 Rx tabs flash glucose sensor (FreeStyle #6 ea 06/19/23 Rx Shabbir 2 Sensor kit) glimepiride 1 mg tablet 1 mg PO QAM PRN Hyperglycemia #90 06/27/23 07/14/23 Rx tabs oxycodone-acetaminophen 10 mg-325 1 tablet PO Q4H PRN pain #180 tabs 06/29/23 07/14/23 Rx mg tablet blood sugar diagnostic (Blood #50 ea 07/05/23 Rx Glucose Test strips) blood-glucose meter (Accu-Chek #1 ea 07/05/23 Rx Guide Me Glucose Meter) lancets (Accu-Chek Softclix #200 ea 07/05/23 Rx Lancets) flash glucose sensor #1 ea 07/14/23 Rx gabapentin 400 mg capsule 400 mg PO BID 07/14/23 07/14/23 History metformin 500 mg tablet 1,000 mg PO BID 07/14/23 07/14/23 History Patient hx anesthesia problems: none Family hx anesthesia problems: none Results Review: All pre-operative results and documents have been reviewed as part of the pre-operative evaluation. [facility]LY [facility] Past Medical History Medical History Alcohol abuse Cervical spondylosis Depression Diabetes type 2, controlled DJD of right shoulder Encounter for immunization H/O squamous cell carcinoma Insomnia Obstructive sleep apnea syndrome Prostate cancer Pure hypercholesterolemia Squamous cell carcinoma of forehead Viral syndrome Surgical History Surgical History History of meniscectomy of left knee (~2017) History of total left hip arthroplasty (~2019) History of total right hip arthroplasty (~2018) Family History Family History Father Cerebrovascular accident Family history of lung cancer Patient's father is Family history of malignant neoplasm Mother Carcinoma of colon Family history of malignant neoplasm Sibling Family history of malignant neoplasm Other Diabetes mellitus Family history of arthritis Family history of cardiovascular disease Social History Social History (Updated 07/25/23 @ 09:05 by Aguilar Bobby DO) Smoking packs per day: 1 Smoking cigarettes per day: 20.0 Years smoked: 30 Smoking pack-years: 30.00 Smoking status: Former smoker Tobacco type: cigarettes Second hand tobacco smoke exposure: No Smoking end date: 04/24/97 Alcohol intake: current Drinks per week: 5 Alcohol use details: 1-2 drinks most days a week Substance use: never Substance use type: does not use Last use: 02/06/23 Lack of Transportation: No Lack of Food: Sometimes True Current Housing: I Have Housing Concerned About Future Housing: No Dif
--- NOTE | ~2023-07-25 | XR_ITS ---
EXAMINATION: XR fluoroscopy no charge DATE: 07/25/2023 10:59 INDICATION: Bilateral L2-L3 and L4-L5 minimally invasive lumbar decompression TECHNIQUE: 28 fluoroscopic images of the lumbar spine were obtained during procedure performed by Dr. Baker. Radiologist was not present for the imaging or procedure. The amount of fluoroscopy time used during this procedure was 2.9 minutes. COMPARISON: None. FINDINGS/IMPRESSION: Images demonstrate the tip of a metallic probe and subsequently a rongeur projecting over the posteri or elements of the lumbar spine for reported posterior decompression. See procedure note for further detail. Reviewed, dictated and finalized at location A.
--- NOTE | 2023-07-25 05:43 | WPDHPUPDATE1 ---
History and Physical Update Update Date/Time: 07/25/23 05:43 History and Physical has been reviewed, including an updated exam of the patient. There are NO changes in the patient's condition. Risks, benefits, and alternatives have been discussed and questions answered. Patient agrees to proceed with procedure.
--- NOTE | 2023-07-25 05:43 | W.PM.PROC2 ---
Procedure Note - Detailed Date of Procedure 07/25/23 Pre-op Diagnosis Lumbar Spinal Stenosis with neurogenic claudication, chronic pain syndrome Post-op Diagnosis Same Procedure Performed bilateral L2-3, L4-5 minimally invasive lumbar decompression under fluoroscopic guidance. Surgeon Mynor Baker MD Anesthesia MAC and Local Description of Procedure INFORMED CONSENT: Risks, benefits, and alternatives to the procedure were discussed in detail with the patient who expressed explicit understanding and consent to proceed. Risks discussed with the patient included but were not limited to risk of serious local or systemic infection, bleeding/bruising, epidural hematoma, dural puncture or tear resulting in CSF leak and acute or chronic post-dural puncture headache, scarring/deformity, immediate or delayed allergic reaction, decreased mobility, failure to treat pain, inadvertent neurologic injury resulting in increased pain, weakness/paralysis or numbness, inadvertent organ injury, need for additional surgery, allergic reaction, heart attack, stroke, seizure, coma, . Anesthetic risks were also briefly discussed by myself and the picked edge sewing machine operator. The patient expressed understanding and consent to proceed, agreeing that potential benefits outweigh risk of harm. All materials required for the procedure were immediately available prior to procedure start. Site and side were confirmed with the patient, compared carefully to the patient chart and consent, and marked prior to transport to the operating room. Appropriate time out procedure was performed per protocol prior to procedure start. PROCEDURE IN DETAIL: The patient was brought to the operative suite and placed in the prone position. Appropriate ASA standard monitors were attached. Anesthesia was initiated without difficulty or event. Eyes were protected. Pressure points were padded with joints in neutral position. When appropriate, breasts and genitals were evaluated and protected. Eyes were checked and were free from undue pressure. Skin overlying the procedure site was marked with sterile marker. Surgical area was prepared in a typical sterile fashion with ChloraPrep and allowed to dry for at least 3 minutes prior to sterilely draping the surgical site. The lumbar spine was identified in the AP fluoroscopic view with slight cephalad tilt perfectly aligning the endplates at the targeted levels with spinous processes bisecting the transpedicular plane. After identifying the intended incision site approximately 1.5 levels inferior to the level of interest, the area was anesthetized by infiltration with no more than 10ml of a 1:1 admixture of 0.5% PF bupivacaine with epinephrine and 2% PF lidocaine with epinepherine via a 27-gauge needle after negative aspiration. A 22-gauge spinal needle was used to provide additional and adequate local anesthesia to the level of the interspinous ligament, ligamentum flavum and the periosteum of the lamina at the intended treatment levels. In the AP view, a #11 scalpel blade was used to create a single stab incision at the intended incision site on the targeted side. The Vertos MILD kit was opened and the included cannula and trocar assembly was advanced through the incision to contact the midportion of the Right lamina just adjacent to the spinous process at L5. Once seated, the lateral view was used to gauge depth demonstrating the most anterior tip of the trocar posterior to the epidural space at all times. The care navigator-provided cannula stabilizer was placed over the trocar flush to the patient's lumbar flank. Cannula obturator with handle was removed. Included depth guide was then attached to the insertion port on the cannula and set to an intial depth of 15 mm. The bone rongeur was advanced to the depth of the lumbar lamina at the targeted level. Depth gauge was then adjusted allowing rongeur tip to advance in the contralateral oblique view to the anterior borde
[2023-07-25 08:30] VITALS: BP 128/77; PULSE 62; RESP 18; TEMP 36.4; O2SAT 97
[2023-07-25] MEDS: LACTATED RINGERS 1,000 ML 30 ML IV CONT (08:30)
[2023-07-25 08:40] VITALS: BMI 27.9
[2023-07-25 09:04] LABS: Glucose Point of Care 141 mg/dl (65-105)
[2023-07-25] MEDS: LIDOCAINE HCL 2% PF INJ 5 ML VIAL 10 ML INFILTRATE (09:44)
[2023-07-25] MEDS: BUPIVACAINE/EPINEPHRINE 0.5% 50 ML VIAL 10 ML INFILTRATE (09:44)
--- NOTE | 2023-07-25 09:45 | SUR.PREOP ---
COMPUTERS WERE DOWN UPON PT ARRIVAL
[2023-07-25 10:42] VITALS: BP 150/74; PULSE 79; RESP 12; TEMP 36.1; O2SAT 97
[2023-07-25 10:52] VITALS: BP 160/77; PULSE 69; RESP 18; O2SAT 100
[2023-07-25 11:02] VITALS: BP 170/79; PULSE 65; RESP 17; O2SAT 100
[2023-07-25 11:12] VITALS: BP 154/70; PULSE 62; RESP 14; O2SAT 97
[2023-07-25 11:15] VITALS: BP 157/71; PULSE 61; RESP 14; O2SAT 98
--- NOTE | 2023-07-25 12:03 | WPDANESPN ---
Anes - Prog Note Post-Op Date/Time: 07/25/23 12:03 Cardiovascular status: normal Respiratory status: normal Airway patency: baseline Mental status: baseline Post-Op hydration status: normal Vital Signs: Last Vital Signs Temp 36.1 C L 07/25/23 10:42 Pulse 61 07/25/23 11:15 Resp 14 07/25/23 11:15 BP 157/71 H 07/25/23 11:15 Pulse Ox 98 07/25/23 11:15 O2 Del Method Room Air 07/25/23 11:15 O2 Flow Rate 8 07/25/23 11:02 Pain Score (VAS): 2 I/O: Intake & Output 07/24/23 07/25/23 07/25/23 23:59 07:59 15:59 Intake Total 100 Balance 100 07/25/23 08:22 POC Capillary Glucose 141 H Post-procedural complaints: none Patient Feedback: Patient satisfied with anesthetic care. Other Findings: Patient vital signs back to baseline. Patient denies nausea and vomiting. Patient's pain under control. Patient OK for discharge.
== END 2023-07-25 11:45 | disposition home or self-care (01) ==
PROVIDERS: PCP Family Medicine; Visit Provider Anesthesiology Pain Medicine
PROC: (CPT 0275T; principal; 2023-07-25 08:30)
DX: M48.062 Spinal stenosis, lumbar region with neurogenic claudication (principal); Z00.6 Encounter for examination for normal comparison and control in clinical research program; G89.4 Chronic pain syndrome
CPT/HCPCS: 0275T; 99199

== ENCOUNTER 2023-11-27 00:35 | Day surgery (SDC) | payer MEDICARE, SELFPAY ==
[2023-11-23 13:24] VITALS: BMI 27.5
--- NOTE | 2023-11-23 13:53 | PC.NURSE ---
Report to the Outpatient Waiting Room, entrance under the green pavilion located off [facility], at time ___08:30am____ on date _11/27/23 . Planned Procedure Time: ___10:30am . Time changes happen often and if your time is changed the preop area will call you the afternoon before. - You and your visitor will be asked to self-screen and do not enter if you have any COVID symptoms. - A mask is optional within the hospital at this time. Patient: - No food or drink from midnight until time of surgery Take the following medications with a SIP of water the morning of surgery: ____Gabapentin and Oxycodone as needed DO NOT STOP ANY OF YOUR OTHER PRESCRIPTION MEDICATIONS PRIOR TO SURGERY ?EXCEPT THE FOLLOWING Medications to discontinue per physician Hold all NSAIDS/Nabumetone/Aspirin for [address] Baker Date to take last dose 11/19/23 Hold all Vitamins and any supplements 3 days prior to procedure per Anesthesia, pt stated already stopping all on 11/19/23 with his other med. Please no make-up, nail dutch, hairspray, perfume, deodorant, or body powder the day of surgery. No jewelry (including any body piercings) or valuables the day of surgery, leave them at home. Please take a shower or bath the night before, or the morning of, surgery with an antibacterial soap. Wear comfortable, loose fitting clothing. Children are encouraged to wear pajamas. - Jewelry must be removed prior to entering the operating room. Rings and piercings that are not removed may be cut off. - The hospital will not accept responsibility for valuables. - Please leave all valuables, including medications, at home the day of surgery. If you are going home after surgery, a licensed paratransit driver must drive you home. - NO public transportation without another adult if you receive anesthesia. - We recommend that an adult stay with you for 24 hours following discharge. - We also recommend that you do not drive, make important decision, drink alcoholic beverages, or take any drugs that were not prescribed by your health care provider for at least 24 hours after your discharge time. Follow any additional instructions given to you from your surgeon. If you or anyone in your household have experienced Covid symptoms in the past week, please notify your surgeon or the nurse liaison at the phone number below for possible testing. Telephone instructions given to _patient over phone and asked if any additional questions and then verbalized understanding. Patient advised to call surgeon office or pre surgery nurse liaison [phone] if any additional questions.
[2023-11-27] VITALS (8 sets, daily range): BP systolic 125–163; BP diastolic 67–89; PULSE 58–83; RESP 13–20; TEMP 36–36.2; O2SAT 99–100
--- NOTE | ~2023-11-27 | XR_ITS ---
EXAMINATION: XR fluoroscopy no charge DATE: 11/27/2023 11:00 CDT INDICATION: INTRACEPT PERCUTANEOUS TRANSPEDICULARNERVE ABLATION AT L5-S1 . TECHNIQUE: 30 fluoroscopic images of the thoracolumbar spine were obtained during intracept percutane ous transpedicular nerve ablation L5-S1, performed by Mynor Baker MD. I was not present during t he procedure. Fluoroscopy exposure time was 5 minutes 23.4 seconds. Air Kerma 299.78 mGy. DAP [id number] mGym2. COMPARISON: None FINDINGS/IMPRESSION: Fluoroscopic documentation of intracept percutaneous transpedicular nerve ablation L5-S1. Please refe r to the operative note for complete procedural details . Reviewed, dictated and finalized at location K.
--- NOTE | 2023-11-27 08:33 | PM.HPGS ---
History of Present Illness History of Present Illness Consent: Risks, benefits, and alternatives have been discussed and questions answered. Patient agrees to proceed with procedure. Chief complaint: vertebrogenic low back pain, chronic pain Narrative: Kunal Pearce is a 72 year old male with chronic, recalcitrant and disablinga xial lumbosacral back pain with flexion/anterior loading secondary to degenerative spondylosis, endplate inflammatory change (Modic type 1/2) at L5 and S1 with failure to respond to aggressive conservative measures including PT, oral and topical analgesics, opioid and nonopioid analgesics, rest, time and activity/behavioral modification over the past 1-2 years who presents for percutaneous transpedicular intraosseous basivertebral nerve ablation (Intracept procedure) at L5 and S1 under fluoroscopic guidance. Review of Systems Review of Systems: Patient denies any new infectious, allergic, cardiopulmonary, neurologic or constitutional symptoms or changes in activity tolerance or exercise capacity including new or progressive SOB/CENTENO, peripheral edema, productive cough, dysuria, nausea/vomiting, diarrhea, weight change, fevers/chills/night sweats, new or progressive neurologic deficit, cognitive or mood changes since last seen, except as documented in the HPI. All systems reviewed & are unremarkable except as noted in HPI and below PMFSH Past Medical History Medical History Alcohol abuse Cervical spondylosis Depression Diabetes type 2, controlled DJD of right shoulder Encounter for immunization H/O squamous cell carcinoma Insomnia Obstructive sleep apnea syndrome Prostate cancer Pure hypercholesterolemia Squamous cell carcinoma of forehead Viral syndrome Surgical History Surgical History History of meniscectomy of left knee (~2017) History of total left hip arthroplasty (~2019) History of total right hip arthroplasty (~2018) Family History Family History Father Cerebrovascular accident Family history of lung cancer Patient's father is Family history of malignant neoplasm Mother Carcinoma of colon Family history of malignant neoplasm Sibling Family history of malignant neoplasm Other Diabetes mellitus Family history of arthritis Family history of cardiovascular disease Social History Social History Smoking packs per day: 1.5 Smoking cigarettes per day: 30.0 Years smoked: 30 Smoking pack-years: 45.00 Smoking status: Former smoker Tobacco type: cigarettes Second hand tobacco smoke exposure: No Smoking end date: 02/27/98 Alcohol intake: current Drinks per week: 14 Alcohol use details: 1-2 drinks most days a week Substance use: never Substance use type: does not use Last use: 02/06/23 Lack of Transportation: No Lack of Food: Sometimes True Current Housing: I Have Housing Concerned About Future Housing: No Difficulty Paying Gas/Electric Bills: YES Difficulty Paying for Meds: YES Currently Unemployed: No Education: Associate Degree Difficulty w/ Childcare or Family Care: YES Living arrangements: with family Additional living arrangements comments: Occupation/Education: retired Gender identity (if verbalized by the patient): Male Sexual Orientation (if Verbalized by the Patient): Straight or Heterosexual Spiritual care concerns: No Agree to blood products: Yes Meds Home Medications and Allergies Home Medications Medication Instructions Recorded Confirmed Type fluticasone propionate 50 See Rx Instructions .Route 05/30/22 11/23/23 Rx mcg/actuation nasal .COMPLEX #48 grams spray,suspension ascorbic acid (vitamin C) 1,000 mg 1 g PO DAILY 02/07/23 11/23/23 History tablet vitamin B c
--- NOTE | 2023-11-27 08:37 | WPDHPUPDATE1 ---
History and Physical Update Update Date/Time: 11/27/23 08:37 History and Physical has been reviewed, including an updated exam of the patient. There are NO changes in the patient's condition. Risks, benefits, and alternatives have been discussed and questions answered. Patient agrees to proceed with procedure.
--- NOTE | 2023-11-27 08:39 | W.PM.PROC2 ---
Procedure Note - Detailed Date of Procedure 11/27/23 Pre-op Diagnosis vertebrogenic low back pain, chronic pain Post-op Diagnosis Same Procedure Performed Percutaneous transpedicular intraosseous basivertebral nerve thermal radiofrequency ablation (Intracept procedure) at L5, S1 under fluoroscopic guidance. Surgeon Mynor Baker MD Anesthesia General (GETA] in the [prone] position with infiltration of local anesthetic. ) and Local Description of Procedure INDICATION FOR PROCEDURE: Patient has Modic-type I/II inflammatory degenerative changes of the endplates supplied by the basivertebral nerve at each level listed (as documented on recent MRI) resulting in [id number] chronic axial low back pain that is aggravated by activity. They are significantly limited in their daily and/or work-related activities as a result, including sitting, standing, lifting/carrying and sleeping, with failure to respond to and/or tolerate extensive efforts at more conservative management (i.e. oral and topical analgesics including NSAIDs, acetaminophen and opioids, Physical Therapy and modalities, time/rest, interventional procedures/corticosteroid injections) for greater than 6 months prior to today's procedure establishing medical necessity for this well-studied and FDA-approved pain-relieving procedure. INFORMED CONSENT: Procedure was discussed in detail with the patient at a previous visit and at the time of surgery. During this discussion, the risks, benefits, and alternatives to the procedure, including doing nothing, were thoroughly described to the patient, who expressed explicit understanding and consent to proceed. Specific risks discussed with the patient included, but were not limited to the risk of serious local or systemic infection, skin burn/scarring, major or minor bleeding/bruising, allergic reaction to medications or materials, inadvertent lung or other organ injury, new or worsening spinal fracture, inadvertent thermal or mechanical nerve or spinal cord injury resulting in increased pain, weakness, numbness or loss of bowel or bladder control, the need for repeat or additional surgery, inadvertent dural puncture resulting in acute or chronic CSF leak and post-dural puncture headache, failure to treat pain, and risks associated with general anesthesia in the prone position including eye, dental, joint, nerve, spine or soft tissue injury/pain related to positioning, heart attack, respiratory failure, aspiration, pneumonia, DVT/PE or thrombosis, hemorrhagic or ischemic stroke, hypoxia, hypo- or hypertension, seizure, coma and . Patient understands these risks and agrees that the opportunity for benefit outweighs the potential risk of harm. Procedure specific informed consent form was read, reviewed, signed by the patient and surgeon and witnessed in the pre-operative area. All pertinent questions were asked and answered to the patient's satisfaction. Surgical site was pre-treated with chlorhexidine wipes. All materials required for the procedure were available and site and side of procedure was marked prior to procedure start. Appropriate timeout was conducted by all participants in the OR (patient's ID, procedure to be performed, procedure site and side, allergies and appropriate medications including pre-operative antibiotics were verified) prior to incision. PROCEDURE IN DETAIL: After full informed consent and adequate IV access was obtained without difficulty; the patient was escorted to the procedural suite. ASA standard monitors were applied and utilized throughout the case. Prophylactic antibiotics were administered prior to procedure start. GETA was initiated without difficulty or event. Eyes were protected. Patient was converted to the prone position in optimal flexion using pillows under the abdomen, hips and ankles. Pressure points were padded, cervical spine and joints were placed in neutral position. Eyes, breasts and genitals were evaluated
[2023-11-27] MEDS: LACTATED RINGERS 1,000 ML 30 ML IV CONT (09:20)
[2023-11-27 09:28] LABS: Glucose Point of Care 131 mg/dl (65-105)
--- NOTE | 2023-11-27 10:06 | WPDANESEPPF ---
Anes - Initial Pre Proc Eval Procedure: Operation Date: 11/27/23 10:30 Proposed Procedures p Intracept Percutaneous Transpedicular Intraosseous Basivertebral Nerve Ablation at L5, S1 Under Fluoroscopic Guidance - Mynor Baker MD Date/Time: 11/27/23 10:06 Surgeon: Mynor Baker MD Pre Op Diagnosis: vertebrogenic low back pain, chronic pain Patient Data Age: 72 Gender: M Height: 1.83 m Weight: 92.9 kg Last Vital Signs Temp 97.2 F L 11/27/23 09:29 Pulse 75 11/27/23 09:29 Resp 20 11/27/23 09:29 BP 125/73 11/27/23 09:29 Pulse Ox 99 11/27/23 09:29 O2 Del Method Room Air 11/27/23 09:29 Allergies Allergy/AdvReac Type Severity Reaction Status Date / Time No Known Allergies Allergy Verified 11/27/23 09:14 Home Medications Medication Instructions Recorded Confirmed Type fluticasone propionate 50 See Rx Instructions .Route 05/30/22 11/27/23 Rx mcg/actuation nasal .COMPLEX #48 grams spray,suspension ascorbic acid (vitamin C) 1,000 mg 1 g PO DAILY 02/07/23 11/27/23 History tablet vitamin B complex 2 cap PO DAILY 02/07/23 11/27/23 History simvastatin 20 mg tablet 20 mg PO DAILY #90 tabs 03/22/23 11/27/23 Rx tamsulosin 0.4 mg capsule 0.4 mg PO BID 03/28/23 11/27/23 History blood sugar diagnostic (OneTouch #300 strips 05/07/23 11/27/23 Rx Verio test strips) flash glucose sensor (FreeStyle #6 ea 06/19/23 11/27/23 Rx Shabbir 2 Sensor kit) blood sugar diagnostic (Blood #50 ea 07/05/23 11/27/23 Rx Glucose Test strips) blood-glucose meter (Accu-Chek #1 ea 07/05/23 11/27/23 Rx Guide Me Glucose Meter) lancets (Accu-Chek Softclix #200 ea 07/05/23 11/27/23 Rx Lancets) flash glucose sensor #1 ea 07/14/23 11/27/23 Rx metformin 500 mg tablet 1,000 mg PO BID 07/14/23 11/27/23 History zolpidem 10 mg tablet 10 mg PO .HS PRN insomnia #90 tabs 07/28/23 11/27/23 Rx nabumetone 750 mg tablet 750 mg PO BID #180 tabs 10/17/23 11/27/23 Rx oxycodone-acetaminophen 10 mg-325 1 tablet PO Q4H PRN pain #180 tabs 11/07/23 11/27/23 Rx mg tablet gabapentin 400 mg capsule 400 mg PO BID #180 caps 11/14/23 11/27/23 Rx trazodone 100 mg tablet 200 mg PO QHS PRN insomnia #180 11/14/23 11/27/23 Rx tabs glimepiride 1 mg tablet 1 mg PO QAM PRN Hyperglycemia #100 11/21/23 11/27/23 Rx tabs Laboratory Tests 11/27/23 09:24 POC Capillary Glucose 131 H mg/dl (65-105) Patient hx anesthesia problems: none Family hx anesthesia problems: none Results Review: All pre-operative results and documents have been reviewed as part of the pre-operative evaluation. [facility] Past Medical History Medical History Alcohol abuse Cervical spondylosis Depression Diabetes type 2, controlled DJD of right shoulder Encounter for immunization H/O squamous cell carcinoma Insomnia Obstructive sleep apnea syndrome Prostate cancer Pure hypercholesterolemia Squamous cell carcinoma of forehead Viral syndrome Surgical History Surgical History History of meniscectomy of left knee (~2017) History of total left hip arthroplasty (~2019) History of total right hip arthroplasty (~2018) Family History Family History Father Cerebrovascular accident Family history of lung cancer Patient's father is Family history of malignant neoplasm Mother Carcinoma of colon Family history of malignant neoplasm Sibling Family history of malignant neoplasm Other Diabetes mellitus Family history of arthritis Family history of cardiovascular disease Social History Social History Smoking packs per day: 1.5 Smoking cigarettes per day: 30.0 Years smoked: 30 Smoking pack-years: 45.00 Smoking status: Former smoker Tobacco type: cigarettes Second hand tobacco smoke exposure: N
[2023-11-27] MEDS: ceFAZolin 2 GM/D5W 50 ML 2 GM/50 ML BAG IVPB (10:43)
[2023-11-27] MEDS: LIDOCAINE HCL 1% LOCAL INJ 20 ML VIAL 10 ML INFILTRATE (10:50)
[2023-11-27] MEDS: BUPIVACAINE/EPINEPHRINE 0.5% 50 ML VIAL 10 ML INFILTRATE (10:51)
[2023-11-27 12:12] LABS: Glucose Point of Care 146 mg/dl (65-105)
[2023-11-27] MEDS: oxyCODONE HCL (*CRX) 5 MG TAB IR PO (13:03)
== END 2023-11-27 13:45 | disposition home or self-care (01) ==
PROVIDERS: PCP Family Medicine; Visit Provider Anesthesiology Pain Medicine
PROC: (CPT 64628; principal; 2023-11-27 10:30)
DX: M47.817 Spondylosis without myelopathy or radiculopathy, lumbosacral region (principal); M54.51 Vertebrogenic low back pain; M43.02 Spondylolysis, cervical region; E11.9 Type 2 diabetes mellitus without complications; M19.011 Primary osteoarthritis, right shoulder; G47.00 Insomnia, unspecified; G47.33 Obstructive sleep apnea (adult) (pediatric); E78.00 Pure hypercholesterolemia, unspecified; F32.A Depression, unspecified; G89.29 Other chronic pain; Z79.84 Long term (current) use of oral hypoglycemic drugs; Z79.891 Long term (current) use of opiate analgesic; Z98.890 Other specified postprocedural states; Z87.891 Personal history of nicotine dependence; Z85.828 Personal history of other malignant neoplasm of skin; Z85.46 Personal history of malignant neoplasm of prostate; Z80.1 Family history of malignant neoplasm of trachea, bronchus and lung; Z80.0 Family history of malignant neoplasm of digestive organs; Z82.49 Family history of ischemic heart disease and other diseases of the circulatory system
CPT/HCPCS: 64628; 82948; 99199; A9270; J0690; J1596; J2371; J2405; J2704; J3010; J7120

== ENCOUNTER 2024-03-19 06:45 | Day surgery (SDC) | payer MEDICARE, SELFPAY ==
[2024-03-01 09:50] VITALS: BMI 26.5
--- NOTE | ~2024-03-19 | XR_ITS ---
EXAMINATION: XR fluoroscopy no charge DATE: 03/19/2024 7:55 FOUNDRY HAND INDICATION: DIAG/PROG RIGHT L3,L4,L5 MEDIAL BRANCH/DORSAL RAMUS BLK . TECHNIQUE: 6 fluoroscopic images and 2 cine clips of the lumbar spine were obtained during diagnostic /prognostic right L3, L4, L5 medial branch/dorsal ramus block, performed by Mynor Baker MD. I wa s not present during the procedure. Fluoroscopy exposure time was 16.8 seconds. Air Kerma 6.05 mGy. COMPARISON: None FINDINGS/IMPRESSION: Fluoroscopic documentation of diagnostic/prognostic right L3, L4, L5 medial branch/dorsal ramus block . Please refer to the operative note for complete procedural details . Reviewed, dictated and finalized at location K. DRY HAND
--- NOTE | 2024-03-19 05:20 | PM.HPGS ---
History of Present Illness History of Present Illness Consent: Risks, benefits, and alternatives have been discussed and questions answered. Patient agrees to proceed with procedure. Chief complaint: Lumbosacral spondylosis, chronic low back pain Narrative: Kunal Pearce is a 73 year old male with chronic, recalcitrant and disabling right-sided lumbosacral back pain secondary to degenerative spondylosis with failure to respond to aggressive conservative measures including PT, oral and topical analgesics, opioid and nonopioid analgesics, rest, time and activity/behavioral modification over the past 1-2 years who presents for diagnostic/prognostic medial branch blocks on the right at L3, L4, L5 (#1) to address the right L4-5, L5-S1 facet joints under fluoroscopic guidance and with contrast control. Review of Systems Review of Systems: Patient denies any new infectious, allergic, cardiopulmonary, neurologic or constitutional symptoms or changes in activity tolerance or exercise capacity including new or progressive SOB/CENTENO, peripheral edema, productive cough, dysuria, nausea/vomiting, diarrhea, weight change, fevers/chills/night sweats, new or progressive neurologic deficit, cognitive or mood changes since last seen, except as documented in the HPI. All systems reviewed & are unremarkable except as noted in HPI and below PMFSH Past Medical History Medical History Alcohol abuse Back pain Cervical spondylosis Depression Diabetes type 2, controlled DJD of right shoulder Encounter for immunization H/O squamous cell carcinoma Insomnia Left knee pain Obstructive sleep apnea syndrome Prostate cancer Pure hypercholesterolemia Squamous cell carcinoma of forehead Viral syndrome Surgical History Surgical History History of meniscectomy of left knee (~2017) History of total left hip arthroplasty (~2019) History of total right hip arthroplasty (~2018) Family History Family History Father Cerebrovascular accident Family history of lung cancer Patient's father is Family history of malignant neoplasm Mother Carcinoma of colon Family history of malignant neoplasm Sibling Family history of malignant neoplasm Other Diabetes mellitus Family history of arthritis Family history of cardiovascular disease Social History Social History Smoking packs per day: 1.5 Smoking cigarettes per day: 30.0 Years smoked: 30 Smoking pack-years: 45.00 Smoking status: Former smoker Tobacco type: cigarettes Second hand tobacco smoke exposure: Yes Smoking end date: 02/27/98 Additional smoking assessment comments: 1997 Alcohol intake: current Drinks per week: 7 Alcohol use details: 1-2 drinks most days a week Substance use: current Substance use type: marijuana Other substance usage details: Daily Last use: 02/06/23 Lack of Transportation: No Lack of Food: Sometimes True Current Housing: I Have Housing Concerned About Future Housing: No Difficulty Paying Gas/Electric Bills: YES Difficulty Paying for Meds: YES Currently Unemployed: No Education: Associate Degree Difficulty w/ Childcare or Family Care: YES Living arrangements: with family Additional living arrangements comments: Occupation/Education: retired Gender identity (if verbalized by the patient): Male Sexual Orientation (if Verbalized by the Patient): Straight or Heterosexual Spiritual care concerns: No Agree to blood products: Yes Meds Home Medications and Allergies Home Medications Medication Instructions Recorded Confirmed Type fluticasone propionate 50 See Rx Instructions .Route 05/30/22 03/01/24 Rx mcg/actuation nasal .COMPLEX #48 grams spray,suspension ascorbic acid (vitamin C) 1,000 mg 1 g PO DAILY 02/07/23 03/01/24 History tablet vitamin B complex 2 cap PO DAILY 02/07/23 03/01/24 History simvastatin 20 mg tablet 20 mg PO DAILY #90 tabs 03/22/23 03/01/24 Rx tamsulosin 0.4 mg capsule 0.4 mg PO BID 03/28/23 03/01/24 History flash glucose sensor (FreeStyle #6 ea 06/19/23 01/01/24 Rx Shabbir 2 Sensor kit) blood sugar diagnostic (Blood #50 ea 07/05/23 01/01/24 Rx Glucose Test strips) blood-glucose meter (Accu-Chek #1 ea 07/05/23 01/01/24 Rx Guide Me Glucose Meter) lancets (Accu-Chek Softclix #200 ea 07/05/23 01/01/24 Rx Lancets) flash glucose sensor #1 ea 07/14/23 01/01/24 Rx glimepiride 1 mg tablet 1 mg PO QAM PRN Hyperglycemia #100 11/21/23 03/01/24 Rx tabs zolpidem 10 mg tablet 10 mg PO .HS PRN insomnia #90 tabs 12/18/23 03/01/24 Rx venlafaxine 37.5 mg 37.5 mg PO DAILY #30 caps 01/01/24 03/01/24 Rx capsule,extended release 24 hr blood sugar diagnostic (OneTouch #300 strips 01/18/24 Rx Verio test strips) metformin 500 mg tablet 1,000 mg PO BID #360 tabs 01/18/24 03/01/24 Rx nabumetone 750 mg tablet 750 mg PO BID #180 tabs 01/20/24 03/01/24 Rx gabapentin 400 mg capsule 400 mg PO BID #180 caps 02/22/24 03/01/24 Rx oxycodone-acetaminophen 10 mg-325 1 tablet PO Q4H PRN pain #180 tabs 03/11/24 Rx mg tablet Allergies Allergy/AdvReac Type Severity Reaction Status Date / Time No Known Allergies Allergy Verified 03/01/24 09:48 Exam Narrative: The patient's physical exam is essentially unchanged from prior examination on 01/16/2024. Specifically, patient demonstrates normal lung capacity, tidal volume and respiratory rate without wheezes, crackles, rales or rubs. Heart rate and rhythm are regular without murmurs, gallops or rubs. No JVD. Pulses 2+ globally without increasing peripheral edema. AAOx3, NC/AT without acute distress or altered consciousness. Speech, cognition, mood and judgment at baseline and within normal limits. Assessment and Plan Assessment and plan (1) Lumbosacral spondylosis: Code(s): M47.817 - Spondylosis without myelopathy or radiculopathy, lumbosacral region Status: Acute Assessment and Plan: proceed as planned with diagnostic/prognostic medial branch/dorsal ramus nerve blocks on the right at L3, L4, L5 to address axial back pain related to lumbosacral spondylosis. Patient to maintain pain diary. We will follow up in 1-2 weeks. (2) Dorsalgia: Code(s): M54.9 - Dorsalgia, unspecified Status: Acute (3) Chronic pain: Code(s): G89.29 - Other chronic pain Status: Acute
--- NOTE | 2024-03-19 05:24 | WPDHPUPDATE1 ---
History and Physical Update Update Date/Time: 03/19/24 05:24 History and Physical has been reviewed, including an updated exam of the patient. There are NO changes in the patient's condition. Risks, benefits, and alternatives have been discussed and questions answered. Patient agrees to proceed with procedure.
--- NOTE | 2024-03-19 05:25 | P.OP_ITS ---
Procedure Note - Detailed Date of Procedure 03/19/24 Pre-op Diagnosis Lumbosacral spondylosis, chronic low back pain Post-op Diagnosis Same Procedure Performed Diagnostic Right Lumbar Medial Branch/Dorsal Ramus Blocks at L3, L4, L5 Aretha ting the Ipsilateral L4-5, L5-S1 Facet Joints Under Fluoroscopic Guidance and with Contrast Control. (2 levels blocked). Surgeon Mynor Baker MD Corporate Health Consultant None. Anesthesia Local Description of Procedure INFORMED CONSENT: Risks, benefits and alternatives to the procedure were discussed in detail with the patient who expressed explicit understanding and consent to proceed. Patient was informed verbally and in written form regarding the risks associated with the procedure including the low risk of serious infection, bleeding/bruising, allergic reaction, nerve or organ injury, paralysis, procedural site pain or discomfort, worsening pain and/or mobility, failure to treat and/or disfigurement. The patient expressed explicit understanding and consent to proceed. All materials required for the procedure were available prior to procedure start. Site and side were marked prior to procedure and confirmed in the presence of the patient. PROCEDURE IN DETAIL: The patient was brought to the procedural suite and placed in the prone position. Patient was made comfortable with use of pillows under the head/chest, hips and ankles. Skin overlying the injection site on the affected side(s) was prepared broadly with ChloraPrep applicator and draped in a sterile manner. Aseptic technique was used throughout. The endplates of the vertebral bodies at the site(s) of interest were aligned in the AP view. Ipsila teral oblique angulation was utilized to optimize visualization of the intersection between the superior articulating process and transverse process at each target site. Local anesthesia was established by infiltration with approximately 5 mL of 1% lidocaine via a 1-1/2 inch 27-gauge needle. A 25-gauge 3.5 inch Quincke spinal needle was advanced until the needle tip contacted periosteum at the target site, right L3. Lateral view was utilized to confirm the appropriate placement of the needle tip just anterior to the facet line and superior to the pedicle. In the Lateral view, 0.25 mL of Omnipaque 300 contrast medium was injected after negative aspiration for CSF, blood or other bodily fluid, showing appropriate extra-articular spread of contrast without evidence of intravascular, foraminal or intrathecal placement. A 0.5 mL solution of 0.5% PF bupivacaine was injected after negative repeat aspiration. Appropriate spread of the injectate was confirmed with washout of previously injected contrast. No parasthesias were elicited. Needle was removed completely intact without difficulty. The same exact procedure was repeated for all remaining levels on the ipsilateral side, right L4, L5 medial branches/dorsal ramus, modified as necessary to accommodate for the new target location with identical findings and results and no evidence of complication. Images were saved and documented in the patient chart. Patient's skin was cleaned and sterile bandage applied. The patient tolerated the procedure well. The patient was transported to the recovery area in stable condition where they were observed for an appropriate amount of time prior to discharge, without evidence of complication. Patient was instructed on the appropriate completion of a pain diary over the next 12-24 hours. The patient was instructed to avoid excessive activity for the next 48 hours, including climbing and frequent use of stairs. Showers only for 48 hours. They were instructed not to drive or operate heavy machinery for 24 hours. They are to monitor for severe headaches, fevers, chills, night sweats, erythema/swelling at the site or any other signs of infection, bleeding/bruising, bowel or bladder changes as well as new pain, weakness or numbness in the upper or lower extremity. Should they notice these changes, they are instructed to call our office immediately or report directly to the nearest Emergency Department if no answer or if after posted office hours. COMPLICATIONS: None COMMENTS: None CONTRAST WASTED: 29.25mL Omnipaque 300. Complications No immediate complications Condition Stable Disposition Same day [facility] Billing Surgery - Charge Forward: Surgery Billing
[2024-03-19 07:46] VITALS: BMI 31.4
[2024-03-19 07:48] VITALS: BP 159/96; PULSE 82; RESP 20; TEMP 36.6; O2SAT 98
[2024-03-19 08:02] VITALS: BP 180/88; PULSE 62; RESP 16; O2SAT 98
[2024-03-19] MEDS: BUPivacaine HCL 0.5% 10 ML AMP 2 ML INFILTRATE (08:06)
[2024-03-19 08:07] VITALS: BP 158/65; PULSE 60; RESP 16; O2SAT 98
[2024-03-19 08:12] VITALS: BP 151/82; PULSE 61; RESP 18; O2SAT 100
== END 2024-03-19 08:33 | disposition home or self-care (01) ==
PROVIDERS: PCP Family Medicine; Visit Provider Anesthesiology Pain Medicine
PROC: (CPT 64493; principal; 2024-03-19 08:00)
DX: M47.817 Spondylosis without myelopathy or radiculopathy, lumbosacral region (principal); M54.59 Other low back pain
CPT/HCPCS: 64493; 64494; 99199

== ENCOUNTER 2024-05-28 08:31 | Day surgery (SDC) | payer MEDICARE, SELFPAY ==
[2024-05-09 10:35] VITALS: BMI 28.4
--- NOTE | ~2024-05-28 | XR_ITS ---
INTRAOPERATIVE FLUOROSCOPY: CLINICAL HISTORY: 73 years old Male; DIAG/PROG RIGHT L3,L4,L5 MEDIAL BRANCH/DORSAL RAMUS NERVE BL PROCEDURE COMMENTS: Limited intraoperative fluoroscopy of the lumbar spine was performed. CUMULATIVE DOSE: 16 mGy FLUOROSCOPY TIME: 29 seconds FINDINGS/IMPRESSION: Please refer to operative note for further details. Reviewed, dictated and finalized at location A. ICATIONS ENGINEER
--- NOTE | 2024-05-28 06:35 | P.HP_ITS ---
History of Present Illness History of Present Illness Consent: Risks, benefits, and alternatives have been discussed and questions answered. Patient agrees to proceed with procedure. Chief complaint: Lumbosacral Spondylosis , chronic low back pain Narrative: Kunal Pearce is a 73 year old male with chronic, recalcitrant and disabling right-sided lumbosacral low back pain secondary to degenerative spondylosis with failure to respond to aggressive conservative measures including PT, oral and topical analgesics, opioid and nonopioid analgesics, rest, time and activity/behavioral modification over the past 1-2 years who presents for diagnostic/prognostic medial branch blocks of the right L3, L4, L5 medial branches/dorsal ramus #2 addressing the ipsilateral L4-5, L5-S1 facet joints under fluoroscopic guidance and with contrast control. Review of Systems Review of Systems: Patient denies any new infectious, allergic, cardiopulmonary, neurologic or cons titutional symptoms or changes in activity tolerance or exercise capacity including new or progressive SOB/CENTENO, peripheral edema, productive cough, dysuria, nausea/vomiting, diarrhea, weight change, fevers/chills/night sweats, new or progressive neurologic deficit, cognitive or mood changes since last seen, except as documented in the HPI. All systems reviewed & are unremarkable except as noted in HPI and below PMFSH Past Medical History Medical History Alcohol abuse Back pain Cervical spondylosis Depression Diabetes type 2, controlled DJD of right shoulder Encounter for immunization H/O squamous cell carcinoma Insomnia Left knee pain Obstructive sleep apnea syndrome Prostate cancer Pure hypercholesterolemia Squamous cell carcinoma of forehead Viral syndrome Surgical History Surgical History History of meniscectomy of left knee (~2017) History of total left hip arthroplasty (~2019) History of total right hip arthroplasty (~2018) Family History Family History Father Cerebrovascular accident Family history of lung cancer Patient's father is Family history of malignant neoplasm Mother Carcinoma of colon Family history of malignant neoplasm Sibling Family history of malignant neoplasm Other Diabetes mellitus Family history of arthritis Family history of cardiovascular disease Social History Social History (Updated 04/01/24 @ 13:58 by Caren Hansen CMA) Smoking packs per day: 1.5 Smoking cigarettes per day: 30.0 Years smoked: 30 Smoking pack-years: 45.00 Smoking status: Unknown if ever smoked Tobacco type: cigarettes Second hand tobacco smoke exposure: No Smoking end date: 02/27/98 Additional smoking assessment comments: 1997 Alcohol intake: current Drinks per week: 7 Alcohol use details: 1-2 drinks most days a week Substance use: never Substance use type: does not use Other substance usage details: Daily Last use: 02/06/23 Do You Feel Safe in your Home?: Yes Lack of Transportation: No Lack of Food: Sometimes True Current Housing: I Have Housing Concerned About Future Housing: No Difficulty Paying Gas/Electric Bills: YES Difficulty Paying for Meds: YES Currently Unemployed: No Education: Associate Degree Difficulty w/ Childcare or Family Care: YES Living arrangements: with family Additional living arrangements comments: Occupation/Education: retired Gender identity (if verbalized by the patient): Male Sexual Orientation (if Verbalized by the Patient): Straight or Heterosexual Spiritual care concerns: No Agree to blood products: Yes Meds Home Medications and Allergies Home Medications ?Medication ?Instructions ?Recorded ?Confirmed ?Type fluticasone propionate 50 See Rx Instructions .Route 05/30/22 05/09/24 Rx mcg/actuation nasal .COMPLEX #48 grams spray,suspension ascorbic acid (vitamin C) 1,000 mg 1 g PO DAILY 02/07/23 05/09/24 History tablet vitamin B complex 2 cap PO DAILY 02/07/23 05/09/24 History simvastatin 20 mg tablet 20 mg PO DAILY #90 tabs 03/22/23 05/09/24 Rx tamsulosin 0.4 mg capsule 0.4 mg PO BID 03/28/23 05/09/24 History blood sugar diagnostic (Blood #50 ea 07/05/23 01/01/24 Rx Glucose Test strips) blood-glucose meter (Accu-Chek #1 ea 07/05/23 01/01/24 Rx Guide Me Glucose Meter) lancets (Accu-Chek Softclix #200 ea 07/05/23 01/01/24 Rx Lancets) flash glucose sensor #1 ea 07/14/23 01/01/24 Rx glimepiride 1 mg tablet 1 mg PO QAM PRN Hyperglycemia #100 11/21/23 05/09/24 Rx tabs zolpidem 10 mg tablet 10 mg PO .HS PRN insomnia #90 tabs 12/18/23 05/09/24 Rx blood sugar diagnostic (OneTouch #300 strips 01/18/24 Rx Verio test strips) metformin 500 mg tablet 1,000 mg (2 x 500 mg) PO BID #360 01/18/24 05/09/24 Rx tabs nabumetone 750 mg tablet 750 mg PO BID #200 tabs 03/30/24 05/09/24 Rx venlafaxine 37.5 mg 37.5 mg PO DAILY #30 caps 04/24/24 05/09/24 Rx capsule,extended release 24 hr flash glucose sensor (FreeStyle #6 ea 05/08/24 Rx Shabbir 2 Sensor kit) gabapentin 400 mg capsule 400 mg PO BID #180 caps 05/09/24 05/09/24 Rx oxycodone-acetaminophen 10 mg-325 1 tablet PO Q4H PRN pain #180 tabs 05/09/24 Rx mg tablet Allergies Allergy/AdvReac Type Severity Reaction Status Date / Time No Known Allergies Allergy Verified 05/09/24 10:27 Exam Narrative: The patient's physical exam is essentially unchanged from prior examination on 04/01/2024. Specifically, patient demonstrates normal lung capacity, tidal volume and respiratory rate without wheezes, crackles, rales or rubs. Heart rate and rhythm are regular without murmurs, gallops or rubs. No JVD. Pulses 2+ globally without increasing peripheral edema. AAOx3 with no evidence of confusion, intoxication or altered mental state, NC/AT without acute distress or altered consciousness. Speech, cognition, mood, insight and judgment at baseline and within normal limits. Assessment and Plan Assessment and plan (1) Lumbosacral spondylosis: Code(s): M47.817 - Spondylosis without myelopathy or radiculopathy, lumbosacral region Status: Acute Assessment and Plan: proceed as planned with right sided diagnostic/ prognostic L3, L4, L5 medial branch/dorsal ramus nerve blocks ( # 2) under fluoroscopic guidance with contrast control. (2) Chronic pain: Code(s): G89.29 - Other chronic pain Status: Acute (3) Dorsalgia: Code(s): M54.9 - Dorsalgia, unspecified Status: Acute
--- NOTE | 2024-05-28 06:39 | WPDHPUPDATE1 ---
History and Physical Update Update Date/Time: 05/28/24 06:39 History and Physical has been reviewed, including an updated exam of the patient. There are NO changes in the patient's condition. Risks, benefits, and alternatives have been discussed and questions answered. Patient agrees to proceed with procedure.
--- NOTE | 2024-05-28 06:40 | P.OP_ITS ---
Procedure Note - Detailed Date of Procedure 05/28/24 Pre-op Diagnosis Lumbosacral Spondylosis , chronic low back pain Post-op Diagnosis Same Procedure Performed Diagnostic Right Lumbar Medial Branch/Dorsal Ramus Blocks at L3, L4, L5 Aretha ting the Ipsilateral L4-5, L5-S1 Facet Joints Under Fluoroscopic Guidance and with Contrast Control. (2 levels blocked). Surgeon Mynor Baker MD Crisis Mental Health Therapist None. Anesthesia Local Description of Procedure INFORMED CONSENT: Risks, benefits and alternatives to the procedure were discussed in detail with the patient who expressed explicit understanding and consent to proceed. Patient was informed verbally and in written form regarding the risks associated with the procedure including the low risk of serious infection, bleeding/bruising, allergic reaction, nerve or organ injury, paralysis, procedural site pain or discomfort, worsening pain and/or mobility, failure to treat and/or disfigurement. The patient expressed explicit understanding and consent to proceed. All materials required for the procedure were available prior to procedure start. Site and side were marked prior to procedure and confirmed in the presence of the patient. PROCEDURE IN DETAIL: The patient was brought to the procedural suite and placed in the prone position. Patient was made comfortable with use of pillows under the head/chest, hips and ankles. Skin overlying the injection site on the affected side(s) was prepared broadly with ChloraPrep applicator and draped in a sterile manner. Aseptic technique was used throughout. The endplates of the vertebral bodies at the site(s) of interest were aligned in the AP view. Ipsila teral oblique angulation was utilized to optimize visualization of the intersection between the superior articulating process and transverse process at each target site. Local anesthesia was established by infiltration with approximately 5 mL of 1% lidocaine via a 1-1/2 inch 27-gauge needle. A 25-gauge 3.5 inch Quincke spinal needle was advanced until the needle tip contacted periosteum at the target site, right L3. Lateral view was utilized to confirm the appropriate placement of the needle tip just anterior to the facet line and superior to the pedicle. In the Lateral view, 0.25 mL of Omnipaque 300 contrast medium was injected after negative aspiration for CSF, blood or other bodily fluid, showing appropriate extra-articular spread of contrast without evidence of intravascular, foraminal or intrathecal placement. A 0.5 mL solution of 2.0% PF lidocaine was injected after negative repeat aspiration. Appropriate spread of the injectate was confirmed with washout of previously injected contrast. No parasthesias were elicited. Needle was removed completely intact without difficulty. The same exact procedure was repeated for all remaining levels on the ipsilateral side, right L4, L5 medial branches/dorsal ramus, modified as necessary to accommodate for the new target location with identical findings and results and no evidence of complication. Images were saved and documented in the patient chart. Patient's skin was cleaned and sterile bandage applied. The patient tolerated the procedure well. The patient was transported to the recovery area in stable condition where they were observed for an appropriate amount of time prior to discharge, without evidence of complication. Patient was instructed on the appropriate completion of a pain diary over the next 12-24 hours. The patient was instructed to avoid excessive activity for the next 48 hours, including climbing and frequent use of stairs. Showers only for 48 hours. They were instructed not to drive or operate heavy machinery for 24 hours. They are to monitor for severe headaches, fevers, chills, night sweats, erythema/swelling at the site or any other signs of infection, bleeding/bruising, bowel or bladder changes as well as new pain, weakness or numbness in the upper or lower extremity. Should they notice these changes, they are instructed to call our office immediately or report directly to the nearest Emergency Department if no answer or if after posted office hours. COMPLICATIONS: None COMMENTS: None CONTRAST WASTED: 29.25mL Omnipaque 300. Complications No immediate complications Condition Stable Disposition Same day [facility] Billing Surgery - Charge Forward: Surgery Billing
[2024-05-28 09:22] VITALS: BMI 29.9
[2024-05-28 09:23] VITALS: BP 155/102; PULSE 69; RESP 18; TEMP 36.4; O2SAT 99
[2024-05-28 10:53] VITALS: BP 181/86; PULSE 64; RESP 16; O2SAT 100
[2024-05-28 10:58] VITALS: BP 172/84; PULSE 64; RESP 14; O2SAT 99
[2024-05-28 11:03] VITALS: BP 172/89; PULSE 64; RESP 10; O2SAT 98
[2024-05-28] MEDS: LIDOCAINE 1% PF INJ 5 ML VIAL 1.5 ML XX (11:06)
[2024-05-28 11:07] VITALS: BP 126/91; PULSE 70; RESP 18; O2SAT 100
[2024-05-28] MEDS: LIDOCAINE 2% PF LOCAL INJ 5 ML VIAL 1.5 ML INFILTRATE (11:07)
== END 2024-05-28 11:40 ==
LOC: ASC 08:34
PROVIDERS: PCP Family Medicine; Visit Provider Anesthesiology Pain Medicine
PROC: (CPT 64493; principal; 2024-05-28 10:45)
DX: M47.817 Spondylosis without myelopathy or radiculopathy, lumbosacral region (principal); G89.29 Other chronic pain
CPT/HCPCS: 64493; 64494; 99199

== ENCOUNTER 2024-08-06 10:40 | Outpatient (CLI) | payer MEDICARE, SELFPAY ==
--- NOTE | 2024-08-06 10:54 | ECG_ITS ---
Test Date: 2024-08-06 11:10:28 Measurements Intervals [place] Rate: 54 P: 41 DE: 194 QRS: 69 QRSD: 98 T: 74 QT: 434 QTc: 414 Interpretive Statements SINUS BRADYCARDIA BORDERLINE ST-T WAVE ABNORMALITY- HIGH LATERAL LEADS BASELINE ARTIFACT- V4-V6 BORDERLINE ECG No previous ECG available for comparison Electronically Signed On 08-06-2024 11:59:05 CDT by Harry López D.O.
--- OUTSIDE RECORDS SUMMARY | 2024-08-06 11:58 | XMS_ITS | Encounter Summary ---
Author Organization [facility] Healthcare Address [address] [place] [address] Care Team Providers Care Plasterer Journeyman Name Role Phone Yarelis Boyd MD Primary Care Provider [phone] Sade Meza NP Unavailable [phone] Fidencio Major MD Unavailable [phone] Encounter Details Date Type Department Care Team (Late st Contact Info) Description 07/02/2024 Results Follow-Up [facility] Advanced Medicine Radiation Oncology [address] [facility] [place], [place] [id number] Sade Meza NP [address] [facility] [address] [place] [address] Prostate cancer (HCC) (Primary Dx) Social History Tobacco Use Types Packs/Day Years Used Date Smoking Tobacco: Former Cigarettes 30 1 04/29/1967 - 02/27/1998 Smokeless Tobacco: Never Humiliation, Afraid, Rape, and Kick questionnair e Answer Date Recorded Within the last year, have y ou been afraid of your partner or ex-partner? No 04/27/2021 Within the last year, have y ou been humiliated or emotionally abused in other ways by your partner or ex-partner? No Within the last year, have y ou been kicked, hit, slapped, or otherwise physically hurt by your partner or ex-partner? No 04/27/2021 Within the last year, have y ou been raped or forced to have any kind of sexual activity by your partner or ex-partner? No 04/27/2021 Social Connection and Isolat ion Panel [NHANES] Answer Date Recorded In a typical week, how many times do you talk on the phone with family, friends, or neighbors? More than three times a week 06/21/2022 How often do you get togethe r with friends or relatives? More than three times a week 06/21/2022 How often do you attend chur or shinto services? 1 to 4 times per year 06/21/2022 Do you belong to any clubs o r organizations such as hoahaoism groups, unions, fraternal or athletic groups, or school groups? No 06/21/2022 How often do you attend meet ings of the clubs or organizations you belong to? Never 06/21/2022 Are you , , di vorced, , never , or living with a partner? 06/21/2022 AUDIT-C Answer Date Recorded Q1: How often do you have a drink containing alcohol? 4 or more times a week 04/27/2021 Q2: How many drinks containi ng alcohol do you have on a typical day when you are drinking? 1 or 2 2 Q3: How often do you have si x or more drinks on one occasion? Never 04/27/2021 Overall Financial Resource Strain (CARDIA) Answe r Date Recorded How hard is it for you to pa y for the very basics like food, housing, medical care, and heating? Somewhat hard 06/21/2022 [facility] Occup[facility] ional [facility] - Occupational Stress Questionnaire Answer Date Recorded Do you feel stress - tense, restless, nervous, or anxious, or unable to sleep at night because your mind is troubled all the time - these days? Only a little 04/27/2021 Exercise Vital Sign Answer Date Recorde d On average, how many days pe r week do you engage in moderate to strenuous exercise (like a brisk walk)? 0 days 04/27/2021 On average, how many minutes do you engage in exercise at this level? 0 min 04/27/2021 Hunger Vital Sign Answer Date Recorded Within the past 12 months, y ou worried that your food would run out before you got the money to buy more. Never true 06/21/19 23 Within the past 12 months, t he food you bought just didn't last and you didn't have money to get more. Never true 06/21/2022 PRAPARE - Transportation Answer Date Re corded In the past 12 months, has l ack of transportation kept you from medical appointments or from getting medications? No 05/26 In the past 12 months, has l ack of transportation kept you from meetings, work, or from getting things needed for daily living? No 06/21/2022 Housing Stability Vital Sign Answer Madan e Recorded In the last 12 months, was t here a time when you were not able to pay the mortgage or rent on time? No 06/21/2022 In the last 12 months, how many places have you lived? 1 06/21/2022 In the last 12 months, was t here a time when you did not have a steady place to sleep or slept in a senior care (including now)? No 06/21/2022 Education Answer Date Recorded What is the highest level of school you have completed or the highest degree you have received? 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 file Not on file Not on file documented as of this encounter Plan of Treatment Scheduled Orders Name Type Priority Associated Diagnoses Orde r Schedule PSA, total and free Lab Routine Prostate cancer (HCC) Expected: 01/02/2025 (Approximate), Expires: 07/02/2025 Total testosterone Lab Routine Prostate cancer (HCC) Expected: 01/02/2025 (Approximate), Expires: 07/02/2025 documented as of this encounter Visit Diagnoses Diagnosis Prostate cancer (HCC)- Primary Malignant neoplasm of prostate documented in this encounter Care Teams Plasterer Journeyman Relationship Specialty Start Date End Date Yarelis Boyd MD PCP - General Family Medicine 04/05/21 Sade Meza NP [address] [facility] [address] [place] [address] Nurse Practitioner Nurse Practitioner 04/01/22 Fidencio Major MD [address] [facility] [address] [place] [address] Radiation Oncologist Radiation Oncology 09/02/22 documented as of this encounter
--- OUTSIDE RECORDS SUMMARY | 2024-08-06 11:58 | XMS_ITS | Clinical Summary ---
Author Organization [facility] [address] [facility] Address [address] [place] [address] Care Team Providers Care Form Tamping Machine Operator Name Role Phone Yarelis Boyd MD Primary Care Provider [phone] Sade Meza NP Unavailable [phone] Fidencio Major MD Unavailable [phone] Allergies No known active allergies Medications metFORMIN (GLUCOPHAGE) 500 mg tablet Take 500 mg by mouth 4 (four) times a day Active meloxicam (MOBIC) 15 mg tablet Take 15 mg by mouth daily Active saw palmetto 500 mg capsule Take 1 tablet by mouth daily Active calcium carbonate (TUMS) 1,000 mg (400 mg elemental) tablet,chewable Take 1,000 mg by mouth daily Active magnesium citrate 100 mg tablet Take 1 tablet by mouth daily Active traZODone (DESYREL) 100 mg tablet TAKE 2 TABLETS BY MOUTH EVERY DAY AT BEDTIME NEEDED FOR INSOMNIA 11/22/2022 Active glimepiride (AMARYL) 1 mg tablet 07/02/2023 Active oxyCODONE-aceta minophen (PERCOCET) 10-325 mg per tablet Take 1 tablet by mouth every 4 (four) hours as needed for pain 06/30/2023 Active zolpidem (AMBIEN) 10 mg tablet 05/16/2023 Active Accu-Chek Softclix Lancets lancets 07/05/2023 Act uzma OneTouch Verio test strips strip 05/14/2023 Active gabapentin (NEURONTIN) 400 mg capsule 07/02/2023 Active nabumetone (RELAFEN) 750 mg tablet 09/13/2023 Active venlafaxine XR (EFFEXOR-XR) 37.5 mg 24 hr capsule Take 1 capsule (37.5 mg total) by mouth daily 01/01/2024 Active tamsulosin (FLOMAX) 0.4 mg extended release capsuleIndicati ons:Malignant neoplasm of prostate (HCC) TAKE 1 CAPSULE BY MOUTH TWICE DAILY 200 capsule 2 01/30/2024 Active Active Problems Problem Noted Date Diagnosed Date Encounter for follow-up surveillance of prostate cancer 04/01/2022 Prostate cancer 05/10/2021 Cancer Staging:Clinical:Stage IIC(cT1c, cN0, cM0, PSA: 10, Grade Group: 4) - Signed by Albert Randle MD on 05/10/2021 Encounters Date Type Department Care Team Description 07/02/2024 Results Follow-Up [facility] Medicine Radiation Oncology [address] [facility] [place] [address] Sade Meza NP Prostate cancer (HCC) (Primary Dx) from Last 3 Months Surgical History Surgery Date Site/Laterality Comments TOTAL HIP ARTHROPLASTY Bilateral MENISCUS SURGERY Left LIPOMA RESECTION x7 at once Medical History Medical History Date Comments Hypercholesteremia Bronchitis Diabetes type 2, controlled (HCC) Diverticulosis Prostate cancer (HCC) Skin cancer removed on head several times Family History Medical History Relation Name Comments Lung cancer Father Colon cancer Mother Breast cancer Sister Relation Name Status Comments Father Mother Sister Social History Tobacco Use Types Packs/Day Years Used Date Smoking Tobacco: Former Cigarettes 1 30 1 04/29/1967 - 02/27/1998 Smokeless Tobacco: Never Tobacco Cessation:Counseling Given: Not Answered Humiliation, Afraid, Rape, and Kick questionnair e [...] How often do you attend chur or bahai services? 1 to 4 times per year 06/21/2022 Do you belong to any clubs o r organizations such as nondenominational groups, unions, fraternal or athletic groups, or [...] when you are drinking? 1 or 2 Q3: How often do you have si x or more drinks on one occasion? Never 04/27/2021 Overall Financial Resource Strain (CARDIA) Answe r Date Recorded How hard is it for you to pa y for the very basics like food, housing, medical care, and heating? 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 Not on file Not on file Obstetrics History Last Filed Vital Signs Vital Sign Reading Time Taken Comments Blood Pressure 150/83 06/14/2021 10:30 AM COMPUTER LAB AIDE Pulse 70 06/14/2021 10:30 AM COMPUTER LAB AIDE Temperature 37.1 C (98.8 F) 04/27/2021 10:12 AM COMPUTER LAB AIDE Respiratory Rate 18 04/27/2021 10:1 2 AM COMPUTER LAB AIDE Oxygen Saturation 97% 06/14/2021 10: 30 AM COMPUTER LAB AIDE Inhaled Oxygen Concentration - - Weight 94.2 kg (207 lb 11.2 oz) 024 10:40 AM CDT Height 182.9 cm (6' 0.01 ) 01/23/2024 1 0:40 AM CDT Body Mass Index 28.16 01/23/2024 10:40 AM CDT Plan of Treatment Health Maintenance Due Date Last Done Comments Colon Cancer Screening-Colonoscopy 1950 Depression Screening 1950 Hepatitis C Screening 1950 DTaP/Tdap/Td Vaccine (1 - Tdap) 12/13/1959 Hepatitis B Screening 1966 Abdominal Aortic Aneurysm (A AA) Screen 2013 Well Visit 65+ 2013 Zoster Vaccine (2 of 3) 01/14/2016 11/19/2015 Fall Risk Assessment 04/27/2022 04/27/2021 Covid-19 Vaccine (4 - season) 2023 04/19/2021, 07/15/2020, 06/23/2020 Influenza Vaccine (#1) 2023 03/04/2021, 2015 Pneumococcal vaccine 65+ Completed 018, 01/30/2017, 12/20/2015 Procedures Procedure Name Priority Date/Time Associated Diagnosis Comments TOTAL TESTOSTERONE Routine 06/27/2024 12 :44 PM COMPUTER LAB AIDE Prostate cancer (HCC) PSA, TOTAL AND FREE Routine 06/27/2024 1 2:44 PM COMPUTER LAB AIDE Prostate cancer (HCC) PSA, TOTAL AND FREE Routine 05/24/2024 1 2:39 PM COMPUTER LAB AIDE Prostate cancer (HCC) TOTAL TESTOSTERONE Routine 05/24/2024 12 :39 PM COMPUTER LAB AIDE Prostate cancer (HCC) from Last 3 Months Results * PSA, total and free (06/27/2024 12:44 PM COMPUTER LAB AIDE) PSA <0.1 < OR = 4.0 ng/mL [facility] PSA, free <0.1 ng/mL [facility] PSA, free UNABLE TO CALCULATE >25 % (calc) [facility] Comment: The free PSA level is below detectable limits. We are unable to calculate a % free PSA. PSA(ng/mL) Free PSA(%) Estimated(x) Probability of Cancer(as%) 0-2.5 (*) Approx. 1 2.6-4.0(1) 0-27(2) 24(3) 4.1-10(4) 0-10 56 11-15 28 16-20 20 21-25 16 >or =26 8 >10(+) N/A >50 References:(1)Christopher et al.:Urology 60: 469-474 (2001) (2)Christopher et al.:J.Urol 168: 922-925 (2001) Free PSA(%) Sensitivity(%) Specificity(%) < or = 25 85 19 < or = 30 93 9 (3)Steveona et al.:LOR 277: 0120-4006 (1996) (4)Catalona et al.:LOR 279: 8619-8254 (1997) (x)These estimates vary with age, ethnicity, family history and IRVIN results. (*)The diagnostic usefulness of % Free PSA has not been established in patients with total PSA below 2.6 ng/mL (+)In men with PSA above 10 ng/mL, prostate cancer risk is determined by total PSA alone. The Total PSA value from this assay system is standardized against the equimolar PSA standard. The test result will be approximately 20% higher when compared to the WHO-standardized Total PSA (Siemens assay). Comparison of serial PSA results should be interpreted with this fact in mind. PSA was performed using the [employer] [place] Immunoassay method. Values obtained from different assay methods cannot be used interchangeably. PSA levels, regardless of value, should not be interpreted as absolute evidence of the presence or absence of disease. Blood 06/27/2024 12:4 4 PM COMPUTER LAB AIDE 06/27/2024 12:45 PM COMPUTER LAB AIDE Sade Meza LAB BLOOD ORDERABLES F inal Result [facility] [address] [place] [address] * (ABNORMAL) Total testosterone (06/27/2024 12:44 PM COMPUTER LAB AIDE) Testosterone 87(L) 250 - 827 ng/dL [facility] Comment: In hypogonadal males, Testosterone, Total, LC/MS/MS, is the recommended assay due to the diminished accuracy of immunoassay at levels below 250 ng/dL. This test code (46124) must be collected in a red-top tube with no gel. Blood 06/27/2024 12:4 4 PM COMPUTER LAB AIDE 06/27/2024 12:45 PM COMPUTER LAB AIDE Sade Morelkland DOMAIN ARCHITECT LAB BLOOD ORDERABLES F inal Result [facility] [address] [place] [address] * PSA, total and free (05/24/2024 12:39 PM COMPUTER LAB AIDE) PSA <0.1 < OR = 4.0 ng/mL [facility] [place] PSA, free <0.1 ng/mL [facility] [place] PSA, free UNABLE TO CALCULATE >25 % (calc) [facility] [place] Comment: The free PSA level is below detectable limits. We are unable to calculate a % free PSA. PSA(ng/mL) Free PSA(%) Estimated(x) Probability of Cancer(as%) 0-2.5 (*) Approx. 1 2.6-4.0(1) 0-27(2) 24(3) 4.1-10(4) 0-10 56 11-15 28 16-20 20 21-25 16 >or =26 8 >10(+) N/A >50 References:(1)Christopher et al.:Urology 60: 469-474 (2001) (2)Steveona et al.:J.Urol 168: 922-925 (2001) Free PSA(%) Sensitivity(%) Specificity(%) < or = 25 85 19 < or = 30 93 9 (3)Catalona et al.:LOR 277: 7161-4490 (1996) (4)Catalona et al.:LOR 279: 5542-3655 (1997) (x)These estimates vary with age, ethnicity, family history and IRVIN results. (*)The diagnostic usefulness of % Free PSA has not been established in patients with total PSA below 2.6 ng/mL (+)In men with PSA above 10 ng/mL, prostate cancer risk is determined by total PSA alone. The Total PSA value from this assay system is standardized against the equimolar PSA standard. The test result will be approximately 20% higher when compared to the WHO-standardized Total PSA (Siemens assay). Comparison of serial PSA results should be interpreted with this fact in mind. PSA was performed using the [place] [place] Immunoassay method. Values obtained from different assay methods cannot be used interchangeably. PSA levels, regardless of value, should not be interpreted as absolute evidence of the presence or absence of disease. Blood 05/24/2024 12:3 9 PM COMPUTER LAB AIDE 05/24/2024 12:40 PM COMPUTER LAB AIDE [facility] Lor Meza LAB BLOOD ORDERABLES F inal Result Performing Organization Address [facility] de Phone Number [facility] [address] [place] [address] * (ABNORMAL) Total testosterone (05/24/2024 12:39 PM COMPUTER LAB AIDE) Testosterone 67(L) 250 - 827 ng/dL [facility] Comment: In hypogonadal males, Testosterone, Total, LC/MS/MS, is the recommended assay due to the diminished accuracy of immunoassay at levels below 250 ng/dL. This test code (44141) must be collected in a red-top tube with no gel. Blood 05/24/2024 12:3 9 PM COMPUTER LAB AIDE 05/24/2024 12:40 PM COMPUTER LAB AIDE [facility] Lor Meza LAB BLOOD ORDERABLES F inal Result Performing Organization Address [facility] Co de Phone Number [facility] [address] [place] [address] from Last 3 Months Insurance [facility] MDCR HMO REF [facility] MEDICARE ADVANTAGE IDPA [facility] MEDICARE ADVANTAGE IDPA Care Teams Form Tamping Machine Operator Relationship Specialty Start Date End Date Yarelis Boyd MD PCP - General Family Medicine 04/05/21 Sade Meza NP [address] [place] [address] Nurse Practitioner Nurse Practitioner 04/01/22 Fidencio Major MD [address] [place] [address] Radiation Oncologist Radiation Oncology 09/02/22
--- OUTSIDE RECORDS SUMMARY | 2024-08-06 11:58 | XMS_ITS | Referral Summary ---
Author Organization [facility] [address] [facility] Address [address] [place] [address] Care Team Providers Care Machine Assembler For Puller Over Name Role Phone Yarelis Boyd MD Primary Care Provider [phone] Sade Meza NP Unavailable [phone] Fidencio Major MD Unavailable [phone] Encounters Date Type Department Care Team Description 07/02/2024 Results Follow-Up [facility] Radiation Oncology [address] [facility] [place] [address] Sade Meza NP Prostate cancer (HCC) (Primary Dx) from Last 3 Months Allergies No known active allergies Medications metFORMIN [...] Signed by Albert Randle MD on 05/10/2021 Social History Tobacco Use Types Packs/Day Years [...] 06/21/2022 How often do you attend chur ch or cheondoism services? 1 to 4 times per year 06/21/2022 Do you belong to any clubs o r organizations such as scientologist groups, unions, fraternal or athletic groups, or [...] medical care, and heating? Somewhat hard 06/21/2022 [facility] [place] of Occupat ional Health - Occupational Stress [...] place to sleep or slept in a chcf (including now)? No 06/21/2022 Education Answer Date Recorded What is the highest level of school you have completed or the highest degree you have received? 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 Not on file Not on file Last Filed Vital Signs Vital Sign Reading Time Taken Comments Blood Pressure 150/83 06/14/2021 10:30 AM MERCHANDISING CONSULTANT Pulse 70 06/14/2021 10:30 AM MERCHANDISING CONSULTANT Temperature 37.1 C (98.8 F) 04/27/2021 10:12 AM MERCHANDISING CONSULTANT Respiratory Rate 18 04/27/2021 10:1 2 AM MERCHANDISING CONSULTANT Oxygen Saturation 97% 06/14/2021 10: 30 AM MERCHANDISING CONSULTANT Inhaled Oxygen Concentration - - Weight 94.2 kg (207 lb 11.2 oz) 024 10:40 AM CDT Height 182.9 cm (6' 0.01 ) 01/23/2024 1 0:40 AM CDT Body Mass Index 28.16 01/23/2024 10:40 AM CDT Plan of Treatment Not on file Procedures Procedure Name Priority Date/Time Associated Diagnosis Comments TOTAL TESTOSTERONE Routine 06/27/2024 12 :44 PM MERCHANDISING CONSULTANT Prostate cancer (HCC) PSA, TOTAL AND FREE Routine 06/27/2024 1 2:44 PM MERCHANDISING CONSULTANT Prostate cancer (HCC) PSA, TOTAL AND FREE Routine 05/24/2024 1 2:39 PM MERCHANDISING CONSULTANT Prostate cancer (HCC) TOTAL TESTOSTERONE Routine 05/24/2024 12 :39 PM MERCHANDISING CONSULTANT Prostate cancer (HCC) from Last 3 Months Results * PSA, total and free (06/27/2024 12:44 PM MERCHANDISING CONSULTANT) PSA <0.1 < OR = 4.0 ng/mL [employer] PSA, free <0.1 ng/mL [place] PSA, free UNABLE TO CALCULATE >25 % (calc) [employer] Comment: The free PSA level is below detectable limits. We are unable to calculate a % free PSA. PSA(ng/mL) Free PSA(%) Estimated(x) Probability of Cancer(as%) 0-2.5 (*) Approx. 1 2.6-4.0(1) 0-27(2) 24(3) 4.1-10(4) 0-10 56 11-15 28 16-20 20 21-25 16 >or =26 8 >10(+) N/A >50 References:(1)Steveona et al.:Urology 60: 469-474 (2001) (2)Catalona et al.:J.Urol 168: 922-925 (2001) Free PSA(%) Sensitivity(%) Specificity(%) < or = 25 85 19 < or = 30 93 9 (3)Catalona et al.:LOR 277: 1766-9624 (1996) (4)Catalona et al.:LOR 279: 7212-2072 (1997) (x)These estimates vary with age, ethnicity, [...] mind. PSA was performed using the Mayra Okolona Immunoassay method. Values obtained from different assay methods cannot be used interchangeably. PSA levels, regardless of value, should not be interpreted as absolute evidence of the presence or absence of disease. Blood 06/27/2024 12:4 4 PM MERCHANDISING CONSULTANT 06/27/2024 12:45 PM MERCHANDISING CONSULTANT [facility] LAB BLOOD ORDERABLES F inal Result Performing Organization Address City/[facility] [[email or web address]] Co de Phone Number [facility] [address] [place] [address] * (ABNORMAL) Total testosterone (06/27/2024 12:44 PM MERCHANDISING CONSULTANT) Pathologist [facility] [place] Testosterone 87(L) 250 - 827 ng/dL [facility] Comment: In hypogonadal males, Testosterone, Total, LC/MS/MS, is the recommended assay due to the diminished accuracy of immunoassay at levels below 250 ng/dL. This test code (25710) must be collected in a red-top tube with no gel. Blood 06/27/2024 12:4 4 PM MERCHANDISING CONSULTANT 06/27/2024 12:45 PM MERCHANDISING CONSULTANT [facility] LAB BLOOD ORDERABLES F inal Result Performing Organization Address [facility] [[email or web address]] Co de Phone Number [facility] [address] [place] [address] * PSA, total and free (05/24/2024 12:39 PM MERCHANDISING CONSULTANT) Pathologist [facility] [place] PSA <0.1 < OR = 4.0 ng/mL [facility] PSA, free <0.1 ng/mL [facility] PSA, free UNABLE TO CALCULATE >25 % (calc) [facility] Comment: The free PSA level is below [...] 30 93 9 (3)Steveona et al.:LOR 277: 9575-9149 (1996) (4)Catalona et al.:LOR 279: 4846-3495 (1997) (x)These estimates vary with age, ethnicity, [...] mind. PSA was performed using the Mayra Gordon Immunoassay method. Values obtained from different assay methods cannot be used interchangeably. PSA levels, regardless of value, should not be interpreted as absolute evidence of the presence or absence of disease. Blood 05/24/2024 12:3 9 PM MERCHANDISING CONSULTANT 05/24/2024 12:40 PM MERCHANDISING CONSULTANT Sade Meza STRIPPER AND OPAQUER APPRENTICE LAB BLOOD ORDERABLES F inal Result [facility] [address] [place] [address] * (ABNORMAL) Total testosterone (05/24/2024 12:39 PM MERCHANDISING CONSULTANT) Testosterone 67(L) 250 - 827 ng/dL [facility] Comment: In hypogonadal males, Testosterone, Total, LC/MS/MS, is the recommended assay due to the diminished accuracy of immunoassay at levels below 250 ng/dL. This test code (65025) must be collected in a red-top tube with no gel. Blood 05/24/2024 12:3 9 PM MERCHANDISING CONSULTANT 05/24/2024 12:40 PM MERCHANDISING CONSULTANT Sade Mortonmeche Meza NP LAB BLOOD ORDERABLES F inal Result [facility] [address] [place] [address] from Last 3 Months Insurance [facility] MDCR HMO REF [facility] MEDICARE ADVANTAGE IDPA [facility] MEDICARE ADVANTAGE IDPA Care Teams Machine Assembler For Puller Over Relationship Specialty Start Date End Date Yarelis Boyd MD PCP - General Family Medicine 04/05/21 Sade Meza NP [address] [place] [address] Nurse Practitioner Nurse Practitioner 04/01/22 Fidencio Major MD [address] [place] [address] Radiation Oncologist Radiation Oncology 09/02/22
--- OUTSIDE RECORDS SUMMARY | 2024-08-06 11:58 | XMS_ITS | Encounter Summary ---
Author Organization [facility] Address [address] [place] [address] Care Team Providers Care Shale Miner Blasting Name Role Phone Yarelis Boyd MD Primary Care Provider [phone] Albert Randle MD Unavailable [phone] Sade Meza NP Unavailable [phone] Fidencio Major MD Unavailable [phone] Encounter Details Date Type Department Care Team (Late st Contact Info) Description 11/22/2021 Telephone [facility] Advanced Medicine Radiation Oncology [address] [facility] [place] [address] Candice Green MA Social History Tobacco Use Types Packs/Day Years [...] or ex-partner? No 04/27/2021 Social Connection and Isolation Panel [NHANES] A nswer Date Recorded Frequency of Communication with Friends and Fami ly Not on file 04/27/2021 Frequency of Social Gatherings with Friends and Family Not on file 04/27/2021 How often do you attend mormonism or mormon serv ices? Never 04/27/2021 Do you belong to any clubs o r organizations such as mormonism groups, unions, fraternal or athletic groups, or school groups? No 04/27/2021 How often do you attend meet ings of the clubs or organizations you belong to? Never 04/27/2021 Are you , , di vorced, , never , or living with a partner? 04/27/2021 AUDIT-C Answer Date Recorded Q1: How often [...] housing, medical care, and heating? Somewhat hard 04/27/2021 [facility] [place] of Occupat ional Health - Occupational Stress [...] the money to buy more. Never true 04/27/19 22 Within the past 12 months, t he food you bought just didn't last and you didn't have money to get more. Never true 04/27/2021 PRAPARE - Transportation Answer Date Re corded In the past 12 months, has l ack of transportation kept you from medical appointments or from getting medications? No 07/2021 In the past 12 months, has l ack of transportation kept you from meetings, work, or from getting things needed for daily living? No 04/27/2021 Education Answer Date Recorded What is the highest level of school you have completed or the highest degree you have received? 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 [address] [place] [address] Radiation Oncologist Radiation Oncology 09/02/22 documented as of this encounter
--- OUTSIDE RECORDS SUMMARY | 2024-08-06 11:58 | XMS_ITS | Encounter Summary ---
Author Organization [facility] Healthcare Address [address] [place] [address] Care Team Providers Care Mattress And Boxsprings Supervisor Name Role Phone Yarelis Boyd MD Primary Care Provider [phone] Albert Randle MD Unavailable [phone] Sade Meza NP Unavailable [phone] Fidencio Major MD Unavailable [phone] Encounter Details Date Type Department Care Team (Late st Contact Info) Description 11/15/2021 Telephone [facility] Advanced Medicine Radiation Oncology [address] [facility] [place] [address] Candice Green MA Social History [...] file 04/27/2021 How often do you attend hindu or anglican serv ices? Never 04/27/2021 Do you belong to any clubs o r organizations such as hindu groups, unions, fraternal or athletic groups, or [...] medical care, and heating? 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 Not on file Not on file documented as of this encounter Plan of Treatment Not on file documented as of this encounter Visit Diagnoses Not on filedocumented in this encounter Care Teams Mattress And Boxsprings Supervisor Relationship Specialty Start Date End Date Yarelis Boyd MD PCP - General Family Medicine 04/05/21 Albert Randle MD Radiation Oncologist Radiation Oncology 07/18/21 Sade Meza NP [address] [place] [address] Nurse Practitioner Nurse Practitioner 04/01/22 Fidencio Major MD [address] [facility] [address] [place] [address] Radiation Oncologist Radiation Oncology 09/02/22 documented as of this encounter
--- OUTSIDE RECORDS SUMMARY | 2024-08-06 11:58 | XMS_ITS | Encounter Summary ---
Author Organization [facility] Healthcare Address [address] [place] [address] Care Team Providers Care Vp Project Name Role Phone Yarelis Boyd MD Primary Care Provider [phone] Albert Randle MD Unavailable [phone] Sade Meza NP Unavailable [phone] Fidencio Major MD Unavailable [phone] Encounter Details Date Type Department Care Team (Late st Contact Info) Description 04/05/2022 Telephone [facility] Advanced Medicine Radiation Oncology [address] [facility] [place] [address] Candice Green MA Social History [...] file 04/27/2021 How often do you attend mosque or orthodox serv ices? Never 04/27/2021 Do you belong to any clubs o r organizations such as mosque groups, unions, fraternal or athletic groups, or [...] medical care, and heating? 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 Not on file Not on file documented as of this encounter Plan of Treatment Not on file documented as of this encounter Visit Diagnoses Not on filedocumented in this encounter Care Teams Vp Project Relationship Specialty Start Date End Date Yarelis Boyd MD PCP - General Family Medicine 04/05/21 Albert Randle MD Radiation Oncologist Radiation Oncology 07/18/21 Sade Meza NP [address] [place] [address] Nurse Practitioner Nurse Practitioner 04/01/22 Fidencio Major MD [address] [facility] [address] [place] [address] Radiation Oncologist Radiation Oncology 09/02/22 documented as of this encounter
--- OUTSIDE RECORDS SUMMARY | 2024-08-06 11:58 | XMS_ITS ---
Author Organization [facility] [address] [facility] Address [address] [place] [address] Care Team Providers Care Disabilities Caregiver Name Role Phone Yarelis Boyd MD Primary Care Provider [phone] Sade Meza NP Unavailable [phone] Fidencio Major MD Unavailable [phone] Active Problems Problem Noted Date Diagnosed Date Encounter for follow-up surveillance of prostate cancer 04/01/2022 Prostate cancer 05/10/2021 Cancer Staging:Clinical:Stage IIC(cT1c, cN0, cM0, PSA: 10, Grade Group: 4) - Signed by Albert Randle MD on 05/10/2021 Current Treatment and Therapy Plans Eligard Injection - 45 mg every 24 weeks* Plan Start Date:06/04/2021 Plan Provider:Albert Randle MD Linked Problems Prostate cancer (HCC) Treatment Medications leuprolide (ELIGARD) Past Treatment and Therapy Plans No past plan information found. Radiation Treatments * Course C1 PROSTATE 202107/02/2021 - 08/10/2021 Treatment Period Energy Fraction Dose Fractions Total Dose Plans Planned PROST_BOOST 08/06/2021 - 08/10/2021 250 3 / 750 PELVIS 6250 07/02/2021 - 08/05/2021 250 25 / 6,250 Reference Points Delivered PROSTATE 7000 08/06/2021 - 08/10/2021 750 PELVIS DPV 07/02/2021 - 08/05/2021 6,250 Lifetime Dose Tracking * Chemical Lifetime Dose Automatic Entry Manual Entr y DLP 1,086 mGycm 1,086 mGycm 0 mGycm
== END 2024-08-06 10:41 | disposition home or self-care (01) ==
PROVIDERS: PCP Family Medicine; Visit Provider Anesthesiology
DX: R94.31 Abnormal electrocardiogram [ECG] [EKG] (principal); E11.9 Type 2 diabetes mellitus without complications; E78.00 Pure hypercholesterolemia, unspecified; Z01.818 Encounter for other preprocedural examination
CPT/HCPCS: 93005

== ENCOUNTER 2024-08-20 05:53 | Day surgery (SDC) | payer MEDICARE, SELFPAY ==
[2024-07-09 12:29] VITALS: BMI 31.2
[2024-07-30 12:48] VITALS: BMI 29.2
--- NOTE | 2024-08-19 13:51 | WPDANESEPPF ---
Anes - Initial Pre Proc Eval Procedure: Operation Date: 08/20/24 07:30 Proposed Procedures p Thermal Radiofrequency Ablation Right L3, L4, L5 Medial Branch/Dorsal Ramus Addressing Right L4-5, L5-S1 Facet Joints under Fluoroscopic Guidance - Mynor Baker MD Date/Time: 08/19/24 13:51 Surgeon: Mynor Baker MD Pre Op Diagnosis: Spondylosis w/o Myelopathy or Radiculopathy,Spinal Patient Data Age: 73 Gender: M Height: 1.83 m Weight: 97.8 kg Allergies Allergy/AdvReac Type Severity Reaction Status Date / Time No Known Allergies Allergy Verified 08/20/24 06:11 Home Medications ?Medication ?Instructions ?Recorded ?Confirmed ?Type fluticasone propionate 50 See Rx Instructions .Route 05/30/22 08/20/24 Rx mcg/actuation nasal .COMPLEX #48 grams spray,suspension ascorbic acid (vitamin C) 1,000 mg 1 g PO DAILY 02/07/23 08/20/24 History tablet vitamin B complex 2 cap PO DAILY 02/07/23 08/20/24 History tamsulosin 0.4 mg capsule 0.4 mg PO BID 03/28/23 08/20/24 History blood sugar diagnostic (Blood #50 ea 07/05/23 08/19/24 Rx Glucose Test strips) blood-glucose meter (Accu-Chek #1 ea 07/05/23 08/19/24 Rx Guide Me Glucose Meter) lancets (Accu-Chek Softclix #200 ea 07/05/23 08/19/24 Rx Lancets) flash glucose sensor #1 ea 07/14/23 08/19/24 Rx blood sugar diagnostic (OneTouch #300 strips 01/18/24 08/19/24 Rx Verio test strips) nabumetone 750 mg tablet 750 mg PO BID #200 tabs 03/30/24 08/20/24 Rx gabapentin 400 mg capsule 400 mg PO BID #180 caps 05/09/24 08/20/24 Rx glimepiride 1 mg tablet 1 mg PO QAM PRN Hyperglycemia #100 06/21/24 08/20/24 Rx tabs zolpidem 10 mg tablet 10 mg PO .HS PRN insomnia #90 tabs 07/01/24 08/20/24 Rx blood-glucose sensor (FreeStyle #2 ea 08/07/24 08/19/24 Rx Shabbir 3 Sensor device) oxycodone-acetaminophen 10 mg-325 1 tablet PO Q4H PRN pain #180 tabs 08/07/24 08/20/24 Rx mg tablet cyclobenzaprine 5 mg tablet 5 mg PO TID PRN muscle spasm #270 08/19/24 08/20/24 Rx tabs metformin 500 mg tablet 1,000 mg (2 x 500 mg) PO BID #400 08/19/24 08/20/24 Rx tabs simvastatin 40 mg tablet 40 mg PO DAILY #100 tabs 08/19/24 08/20/24 Rx venlafaxine 37.5 mg 37.5 mg PO DAILY #30 caps 08/19/24 08/20/24 Rx capsule,extended release 24 hr Patient hx anesthesia problems: none Family hx anesthesia problems: none Results Review: All pre-operative results and documents have been reviewed as part of the pre-operative evaluation. [facility] Past Medical History Medical History Back pain Left knee pain Cervical spondylosis Diabetes type 2, controlled DJD of right shoulder Prostate cancer H/O squamous cell carcinoma Viral syndrome Encounter for immunization Depression Alcohol abuse Insomnia Obstructive sleep apnea syndrome Pure hypercholesterolemia Squamous cell carcinoma of forehead Surgical History Surgical History History of meniscectomy of left knee (~2017) History of total right hip arthroplasty (~2018) History of total left hip arthroplasty (~2019) Family History Family History Father Cerebrovascular accident Family history of lung cancer Patient's father is Family history of malignant neoplasm Mother Carcinoma of colon Family history of malignant neoplasm Sibling Family history of malignant neoplasm Other Diabetes mellitus Family history of arthritis Family history of cardiovascular disease Social History Social History Smoking packs per day: 1.5 Smoking cigarettes per day: 30.0 Years smoked: 30 Smoking pack-years: 45.00 Smoking status: Former smoker Tobacco type: cigarettes Second hand tobacco smoke exposure: Yes Smoking end date: 02/27/98 Additional smoking assessment comments: 1997 Alcohol intake: current Drinks per week: 7 Alcohol use details: 1-2 drinks most days a week Substance use: current Substance use type: marijuana Other substance usage details: Daily Last use: 02/06/23 Do You Feel Safe in your Home?: Yes Lack of Transportation: No Lack of Food: Sometimes True Current Housing: I Have Housing Concerned About Future Housing: No Difficulty Paying Gas/Electric Bills: YES Difficulty Paying for Meds: YES Currently Unemployed: No Education: Associate Degree Difficulty w/ Childcare or Family Care: YES Living arrangements: with family Additional living arrangements comments: Occupation/Education: retired Gender identity (if verbalized by the patient): Male Sexual Orientation (if Verbalized by the Patient): Straight or Heterosexual Spiritual care concerns: No Agree to blood products: Yes Anes - Eval Final PreProcedure Day of Procedure 08/19/24 13:51 Patient weight: overweight Heart: regular rate and rhythm Lungs: clear to auscultation and normal air movement Airway: Mallampati scale class II Neurological: alert and oriented Last oral intake: >/= 8 hours ASA classification: III Emergent: no Anesthetic plan: proceed Anesthesia type and monitoring: monitored anesthesia care and standard monitoring Results Review: All pre-operative results and documents have been reviewed as part of the pre-operative evaluation. Informed Consent: The patient's anesthetic plan and its attendant risks and benefits were discussed with the patient/family/POA. Questions were solicited and answers provided to the satisfaction of the patient/family/POA.
--- NOTE | ~2024-08-20 | XR_ITS ---
EXAMINATION: XR fluoroscopy no charge DATE: 08/20/2024 7:30 CDT INDICATION: THERMAL RADIOFREQ ABLATION RIGHT L3,L4,L5 . TECHNIQUE: 6 fluoroscopic images and 7 cine clips of the lumbar spine were obtained during thermal ra diofrequency ablation, right L3, L4, L5, performed by Mynor Baker MD. I was not present during t he procedure. Fluoroscopy exposure time was 29.3 seconds. Air Kerma 30.27 mGy. COMPARISON: None FINDINGS/IMPRESSION: Fluoroscopic documentation of thermal radiofrequency ablation, right L3, L4, L5. Please refer to the operative note for complete procedural details . Reviewed, dictated and finalized at location K.
--- OUTSIDE RECORDS SUMMARY | 2024-08-20 06:08 | XMS_ITS | Encounter Summary ---
Author Organization [facility] Healthcare Address [address] [place] [address] Care Team Providers Care Combination Machine Tender Name Role Phone Yarelis Boyd MD Primary Care Provider [phone] Albert Randle MD Unavailable [phone] Sade Meza NP Unavailable [phone] Fidencio Major MD Unavailable [phone] Encounter Details Date Type Department Care Team (Late st Contact Info) Description 11/22/2021 Telephone [facility] Advanced Medicine Radiation Oncology [address] [facility] [place] [address] Candice Green MA Social History [...] file 04/27/2021 How often do you attend roman catholic or gnosticist serv ices? Never 04/27/2021 Do you belong to any clubs o r organizations such as roman catholic groups, unions, fraternal or athletic groups, or [...] medical care, and heating? 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 Not on file Not on file documented as of this encounter Plan of Treatment Not on file documented as of this encounter Visit Diagnoses Not on filedocumented in this encounter Care Teams Combination Machine Tender Relationship Specialty Start Date End Date Yarelis Boyd MD PCP - General Family Medicine 04/05/21 Albert Randle MD Radiation Oncologist Radiation Oncology 07/18/21 Sade Meza NP [address] [place] [address] Nurse Practitioner Nurse Practitioner 04/01/22 Fidencio Major MD [address] [facility] [address] [place] [address] Radiation Oncologist Radiation Oncology 09/02/22 documented as of this encounter
--- OUTSIDE RECORDS SUMMARY | 2024-08-20 06:08 | XMS_ITS | Clinical Summary ---
Author Organization [facility] Address [address] [place] [address] Phone Care Team Providers Care Produce Assistant Name Role Phone Yarelis Boyd MD Primary Care Provider [phone] Allergies No known active allergies Medications metFORMIN (GLUCOPHAGE) 500 MG Tablet Take 500 mg by mouth 5 times daily as needed. Active simvastatin (ZOCOR) 10 MG Tablet Take 10 mg by mouth every evening. Active Ascorbic Acid (VITAMIN C PO) Take by mouth. Active B Complex Vitamins (VITAMIN B COMPLEX PO) Take by mouth. Active MAGNESIUM PO Take by mouth. Active L-LYSINE PO Take by mouth. Active VITAMIN K PO Take by mouth. Active Active Problems No known active problems Family History Medical History Relation Name Comments Diabetes Brother Cancer Father Heart Disease Father Colon Cancer Mother Breast Cancer Sister Relation Name Status Comments Brother Father Mother Sister Social History Tobacco Use Types Packs/Day Years Used Date Smoking Tobacco: Former Cigarettes 1.5 30 1 04/29/1967 - 02/27/1998 Smokeless Tobacco: Never Tobacco Cessation:Counseling Given: No Alcohol Use Standard Drinks/Week Comments Yes 0 (1 standard drink = 0.6 oz pur e alcohol) 3-4 nights weekly, Beer Sexually Active Control Partners Comments Not Currently Sex and Gender Information Value Date Recorded Sex Assigned at Not on file Legal Sex Male 8:38 PM CDT Gender Identity Not on file Sexual Orientation Not on file Last Filed Vital Signs Vital Sign Reading Time Taken Comments Blood Pressure 148/78 06/25/2020 2:27 PM ARCHITECTURAL PRACTICE MANAGER Pulse 69 06/25/2020 2:27 PM ARCHITECTURAL PRACTICE MANAGER Temperature 36.7 C (98 F) 06/25/2020 2:27 PM ARCHITECTURAL PRACTICE MANAGER Respiratory Rate 20 06/25/2020 2:27 PM ARCHITECTURAL PRACTICE MANAGER Oxygen Saturation 95% 06/25/2020 2:27 PM ARCHITECTURAL PRACTICE MANAGER Inhaled Oxygen Concentration - - Weight 100.7 kg (222 lb) 06/25/2020 2:27 PM ARCHITECTURAL PRACTICE MANAGER Height 182.9 cm (6') 06/25/2020 2:27 PM ARCHITECTURAL PRACTICE MANAGER Body Mass Index 30.11 06/25/2020 2:27 PM ARCHITECTURAL PRACTICE MANAGER Plan of Treatment Health Maintenance Due Date Last Done Comments TdaP Immunization 1950 Cologuard 1998 Immunochemical Fecal Occult Blood 1998 Zoster Immunization (2 of 3) 01/14/2016 11/19/2015 Colonoscopy 08/14/2023 08/13/2020, 02/13/2017 Colorectal Cancer Screening 08/14/2023 Respiratory Syncytial Virus (RSV) Immunization (Adult) (1 - 1-dose 75+ series) 12/13/2023 Influenza Immunization (#1) 2023 12/20/2015 SARS-COV-2 Immunization ( season) 2023 04/19/2021, 07/15/2020, 06/23/2020 08/13/2020, 02/13/2017 Pneumococcal Immunization (5 0+ years) Completed 04/23/2018, 01/30/2017, 12/20/2015 Pneumococcal Immunization Combined Discontinued 04/23/2018, 01/30/2017, 12/20/2015 Hepatitis C Virus (HCV) Screening Completed 06/25/2020, 06/25/2020 Hepatitis B Immunization Aged Out No longer eligible based on patient's age to complete this topic Meningococcal Immunization (ACWY) Aged Out No longer eligible based on patient's age to complete this topic Rotavirus Immunization Aged Out No lo nger eligible based on patient's age to complete this topic Procedures Procedure Name Priority Date/Time Associated Diagnosis Comments HM COLONOSCOPY Routine 08/13/2020 HEPATITIS C ANTIBODY Routine 06/25/2020 3:18 PM ARCHITECTURAL PRACTICE MANAGER Need for hepatitis C screening test from Last 3 Months or Most Recently Relevant to Health Maintenance Results * HM COLONOSCOPY (08/13/2020) us Yoandy Phong Jagdeepdavinaneela DO PROCEDURE/MINOR SURGICAL ORDERA BLES Final Result * (ABNORMAL) HEPATITIS C ANTIBODY (06/25/2020 3:18 PM ARCHITECTURAL PRACTICE MANAGER) hepatitis C antibody 1.35(H) <1 S/CO [facility] ARCH [id number] 06/25/2020 10:09 PM ARCHITECTURAL PRACTICE MANAGER [facility] Comment: Signal/Cutoff ratio < 0.79 is Nondetected Signal/Cutoff ratio 0.80-0.99 is Grayzone Signal/Cutoff ratio > 0.99 is Detected Supplemental assays are recommended if signal/cutoff ratio is >/=1.00. Signal/cutoff ratio result >/= 5.00 is 97% predictive of positivity for recombinant immunoblot assay (RIBA) and will be reported to the [place] Department of Public [facility] as required. Blood Venipuncture / Unknown 06/25/2020 3:18 PM ARCHITECTURAL PRACTICE MANAGER 06/25/2020 3:22 PM ARCHITECTURAL PRACTICE MANAGER us Judi Cisse PAC CHEMISTRY ORDERABLES Anjali l Result [facility] [address] [place] [address], from Last 3 Months or Most Recently Relevant to Health Maintenance Insurance MEDICARE C [employer] on file Care Teams Produce Assistant Relationship Specialty Start Date End Date Yarelis Boyd MD [address] [id number] PCP - General Family Medicine 10/19/16
--- OUTSIDE RECORDS SUMMARY | 2024-08-20 06:08 | XMS_ITS | Encounter Summary ---
Author Organization [facility] Healthcare Address [address] [place] [address] Care Team Providers Care Mail Processor Name Role Phone Yarelis Boyd MD Primary Care Provider [phone] Albert Randle MD Unavailable [phone] Sade Meza NP Unavailable [phone] Fidencio Major MD Unavailable [phone] Encounter Details Date Type Department Care Team (Late st Contact Info) Description 04/05/2022 Telephone [facility] Advanced Medicine Radiation Oncology [address] [facility] [place] [address] Candice Green MA Social History [...] file 04/27/2021 How often do you attend buddhist or tenriism serv ices? Never 04/27/2021 Do you belong to any clubs o r organizations such as buddhist groups, unions, fraternal or athletic groups, or [...] medical care, and heating? 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 file Not on file Not on file documented as of this encounter Plan of Treatment Not on file documented as of this encounter Visit Diagnoses Not on filedocumented in this encounter Care Teams Mail Processor Relationship Specialty Start Date End Date Yarelis Boyd MD PCP - General Family Medicine 04/05/21 Albert Randle MD Radiation Oncologist Radiation Oncology 07/18/21 Sade Meza NP [address] [place] [address] Nurse Practitioner Nurse Practitioner 04/01/22 Fidencio Major MD [address] [facility] [address] [place] [address] Radiation Oncologist Radiation Oncology 09/02/22 documented as of this encounter
--- OUTSIDE RECORDS SUMMARY | 2024-08-20 06:08 | XMS_ITS | Encounter Summary ---
Author Organization [facility] Healthcare Address [address] [place] [address] Care Team Providers Care Statement Services Representative Name Role Phone Yarelis Boyd MD Primary Care Provider [phone] Sade Meza NP Unavailable [phone] Fidencio Major MD Unavailable [phone] Encounter Details Date Type Department Care Team (Late st Contact Info) Description 07/02/2024 Results Follow-Up [facility] Advanced Medicine Radiation Oncology [address] [facility] Advanced Medicine [facility] [address] [place], [place] [id number] Sade Meza NP [address] [facility] [address] [place] [address] Prostate cancer (HCC) (Primary Dx) Social History [...] How often do you attend chur or taoist services? 1 to 4 times per year [...] medical care, and heating? Somewhat hard 06/21/2022 [facility] ional Health - Occupational Stress [...] place to sleep or slept in a [place] health care facility (including now)? No 06/21/2022 Education Answer Date Recorded What is the highest level of school you have completed or the highest degree you have received? 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
--- OUTSIDE RECORDS SUMMARY | 2024-08-20 06:08 | XMS_ITS | Referral Summary ---
Author Organization [facility] [address] [facility] Address [address] [place] [address] Care Team Providers Care Timber Watchman Name Role Phone Yarelis Boyd MD Primary Care Provider [phone] Sade Meza NP Unavailable [phone] Fidencio Major MD Unavailable [phone] Encounters Date Type Department Care Team Description 07/02/2024 Results Follow-Up [facility] Radiation Oncology [address] [facility] [place] [address] Sade Meza, YOLA Prostate cancer (HCC) (Primary Dx) from Last 3 Months Allergies No known active allergies Medications metFORMIN (GLUCOPHAGE) 500 mg tablet Take 500 mg by mouth 4 (four) times a day Active meloxicam (MOBIC) 15 mg tablet Take 15 mg by mouth daily Active saw palmetto 500 mg capsule Take 1 tablet by mouth daily Active calcium carbonate (TUMS) 1,000 mg (400 mg elemental) tablet,chewabl e Take 1,000 mg by mouth daily Active magnesium citrate 100 mg tablet Take 1 tablet by mouth daily Active traZODone (DESYREL) 100 mg tablet TAKE 2 TABLETS BY MOUTH EVERY DAY AT BEDTIME NEEDED FOR INSOMNIA 3 Active glimepiride (AMARYL) 1 mg tablet 4 Active oxyCODONE-acet aminophen (PERCOCET) 10-325 mg per tablet Take 1 tablet by mouth every 4 (four) hours as needed for pain 4 Active zolpidem (AMBIEN) 10 mg tablet 4 Active Accu-Chek Softclix Lancets lancets 4 Active OneTouch Verio test strips strip 4 Active gabapentin (NEURONTIN) 400 mg capsule 4 Active nabumetone (RELAFEN) 750 mg tablet 4 Active venlafaxine XR (EFFEXOR-XR) 37.5 mg 24 hr capsule Take 1 capsule (37.5 mg total) by mouth daily 4 Active tamsulosin (FLOMAX) 0.4 mg extended release capsuleIndicat ions:Malignant neoplasm of prostate (HCC) TAKE 1 CAPSULE BY MOUTH TWICE DAILY 200 capsule 2 5 Active tamsulosin (FLOMAX) 0.4 mg extended release capsuleIndicat ions:Malignant neoplasm of prostate (HCC) TAKE 1 CAPSULE BY MOUTH TWICE DAILY 200 capsule 2 4 025 Discontinued Active Problems Problem Noted Date Diagnosed Date [...] often do you attend chur ch or denominational services? 1 to 4 times per year 06/21/2022 Do you belong to any clubs o r organizations such as evangelical groups, unions, fraternal or athletic groups, or [...] heating? Somewhat hard 06/21/2022 [facility] - Occupational Stress Questionnaire Answer Date [...] place to sleep or slept in a care home (including now)? No 06/21/2022 Education Answer Date Recorded What is the highest level of school you have completed or the highest degree you have received? 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 on file Not on file Not on file Last Filed Vital Signs Vital Sign Reading Time Taken Comments Blood Pressure 150/83 06/14/2021 10:30 AM CURRENCY MACHINE OPERATOR Pulse 70 06/14/2021 10:30 AM CURRENCY MACHINE OPERATOR Temperature 37.1 C (98.8 F) 04/27/2021 10:12 AM CURRENCY MACHINE OPERATOR Respiratory Rate 18 04/27/2021 10:1 2 AM CURRENCY MACHINE OPERATOR Oxygen Saturation 97% 06/14/2021 10: 30 AM CURRENCY MACHINE OPERATOR Inhaled Oxygen Concentration - - Weight 94.2 kg (207 lb 11.2 oz) 024 10:40 AM CDT Height 182.9 cm (6' 0.01 ) 01/23/2024 1 0:40 AM CDT Body Mass Index 28.16 01/23/2024 10:40 AM CDT Plan of Treatment Not on file Procedures Procedure Name Priority Date/Time Associated Diagnosis Comments TOTAL TESTOSTERONE Routine 06/27/2024 12 :44 PM CURRENCY MACHINE OPERATOR Prostate cancer (HCC) PSA, TOTAL AND FREE Routine 06/27/2024 1 2:44 PM CURRENCY MACHINE OPERATOR Prostate cancer (HCC) PSA, TOTAL AND FREE Routine 05/24/2024 1 2:39 PM CURRENCY MACHINE OPERATOR Prostate cancer (HCC) TOTAL TESTOSTERONE Routine 05/24/2024 12 :39 PM CURRENCY MACHINE OPERATOR Prostate cancer (HCC) from Last 3 Months Results * PSA, total and free (06/27/2024 12:44 PM CURRENCY MACHINE OPERATOR) PSA <0.1 < OR = 4.0 ng/mL [facility]ap PSA, free <0.1 ng/mL [facility] PSA, free UNABLE TO CALCULATE >25 % (calc) [facility] Comment: The free PSA level is below [...] 30 93 9 (3)Catalona et al.:LOR 277: 1165-8533 (1996) (4)Catalona et al.:LOR 279: 7466-5092 (1997) (x)These estimates vary with age, ethnicity, [...] of disease. Blood 06/27/2024 12:4 4 PM CURRENCY MACHINE OPERATOR 06/27/2024 12:45 PM CURRENCY MACHINE OPERATOR [facility] LAB BLOOD ORDERABLES F inal Result Performing Organization Address City/[facility]/ZIP Co de Phone Number [facility] [address] [place] [address] * (ABNORMAL) Total testosterone (06/27/2024 12:44 PM CURRENCY MACHINE OPERATOR) Testosterone 87(L) 250 - 827 ng/dL [facility] Comment: In hypogonadal males, Testosterone, Total, LC/MS/MS, is the recommended assay due to the diminished accuracy of immunoassay at levels below 250 ng/dL. This test code (38294) must be collected in a red-top tube with no gel. Blood 06/27/2024 12:4 4 PM CURRENCY MACHINE OPERATOR 06/27/2024 12:45 PM CURRENCY MACHINE OPERATOR [facility] LAB BLOOD ORDERABLES F ina Result Performing Organization Address City/[facility]/ZIP Co de Phone Number [facility] [address] [place] [address] * PSA, total and free (05/24/2024 12:39 PM CURRENCY MACHINE OPERATOR) PSA <0.1 < OR = 4.0 ng/mL [facility] PSA, free <0.1 ng/mL [facility] PSA, free UNABLE TO CALCULATE >25 % (calc) [facility] Comment: The free PSA level [...] 30 93 9 (3)Catalona et al.:LOR 277: 4537-1017 (1996) (4)Catalona et al.:LOR 279: 3498-4912 (1997) (x)These estimates vary with age, ethnicity, [...] of disease. Blood 05/24/2024 12:3 9 PM CURRENCY MACHINE OPERATOR 05/24/2024 12:40 PM CURRENCY MACHINE OPERATOR Sade Meza NP LAB BLOOD ORDERABLES F inal Result [facility] [address] [place] [address] * (ABNORMAL) Total testosterone (05/24/2024 12:39 PM CURRENCY MACHINE OPERATOR) Testosterone 67(L) 250 - 827 ng/dL [facility] Comment: In hypogonadal males, Testosterone, Total, LC/MS/MS, is the recommended assay due to the diminished accuracy of immunoassay at levels below 250 ng/dL. This test code (69894) must be collected in a red-top tube with no gel. Blood 05/24/2024 12:3 9 PM CURRENCY MACHINE OPERATOR 05/24/2024 12:40 PM CURRENCY MACHINE OPERATOR Sade Meza POSITION DESCRIPTION MANAGER LAB BLOOD ORDERABLES F inal Result [facility] [address] [place] [address] from Last 3 Months Insurance [facility] MDCR HMO REF [facility] MEDICARE Address: [id number] [place] [address] [facility] MEDICARE [facility]ANT[facility] MEDIC[facility] Address: [address] [address] [place] [address] IDPA [facility] MEDICARE [facility] MEDIC[facility] Address: [address] [address] [place] [address] [employer] Care Teams Timber Watchman Relationship Specialty Start Date End Date Yarelis Boyd MD PCP - General Family Medicine 04/05/21 Sade Meza NP [address] [place] [address] Nurse Practitioner Nurse Practitioner 04/01/22 Fidencio Major MD [address] [facility] [address] [place] [address] Radiation Oncologist Radiation Oncology 09/02/22
--- OUTSIDE RECORDS SUMMARY | 2024-08-20 06:08 | XMS_ITS | Encounter Summary ---
Author Organization [facility] Healthcare Address [address] [place] [address] Care Team Providers Care Elevator Supervisor Name Role Phone Yaerlis Boyd MD Primary Care Provider [phone] Albert Randle MD Unavailable [phone] Sade Meza NP Unavailable [phone] Fidencio Major MD Unavailable [phone] Encounter Details Date Type Department Care Team (Late st Contact Info) Description 11/15/2021 Telephone [facility] Advanced Medicine Radiation Oncology [address] [facility] [place] [address] Candice Green MA Social History [...] file 04/27/2021 How often do you attend mu-ism or baptist serv ices? Never 04/27/2021 Do you belong to any clubs o r organizations such as mu-ism groups, unions, fraternal or athletic groups, or [...] medical care, and heating? 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 file Not on file Not on file documented as of this encounter Plan of Treatment Not on file documented as of this encounter Visit Diagnoses Not on filedocumented in this encounter Care Teams Elevator Supervisor Relationship Specialty Start Date End Date Yarelis Boyd MD PCP - General Family Medicine 04/05/21 Albert Randle MD Radiation Oncologist Radiation Oncology 07/18/21 Sade Meza NP [address] [place] [address] Nurse Practitioner Nurse Practitioner 04/01/22 Fidencio Major MD [address] [facility] [address] [place] [address] Radiation Oncologist Radiation Oncology 09/02/22 documented as of this encounter
--- OUTSIDE RECORDS SUMMARY | 2024-08-20 06:08 | XMS_ITS | Clinical Summary ---
Author Organization [facility] [address] [facility] Address [address] [place] [address] Care Team Providers Care Bed And Breakfast Innkeeper Name Role Phone Yarelis Boyd MD Primary Care Provider + [phone] Sade Meza NP Unavailable [phone] Fidencio Major MD Unavailable [phone] Allergies No known active allergies Medications metFORMIN [...] Department Care Team Description 07/02/2024 Results Follow-Up [facility] Advanced Medicine Radiation Oncology [address] [place] [address] Sade Meza NP Prostate cancer (HCC) (Primary [...] How often do you attend chur or jainism services? 1 to 4 times per year [...] medical care, and heating? Somewhat hard 06/21/2022 [facility] [place] of Occupat ional Health - Occupational Stress [...] place to sleep or slept in a fpc (including now)? No 06/21/2022 Education Answer Date Recorded What is the highest level of school you have completed or the highest degree you have received? Some college, no degree 04/27/2021 Sex and Gender Information Value Date Recorded Sex Assigned at Not on file Legal Sex Male 11:04 AM [employer] Gender Identity Not on file Sexual Orientation Not on file Occupation Industry Job Start Date Job End Date Retired [employer] Not on file Not on file Not on file Obstetrics History Last Filed Vital Signs Vital Sign Reading Time Taken Comments Blood Pressure 150/83 06/14/2021 10:30 AM [employer] Pulse 70 06/14/2021 10:30 AM [employer] Temperature 37.1 C (98.8 F) 04/27/2021 10:12 AM [employer] Respiratory Rate 18 04/27/2021 10:1 2 AM [employer] Oxygen Saturation 97% 06/14/2021 10: 30 AM [employer] Inhaled Oxygen Concentration - - Weight 94.2 [...] Fall Risk Assessment 04/27/2022 04/27/2021 Covid-19 Vaccine ( season) 2023 04/19/2021, 07/15/2020, 06/23/2020 Influenza Vaccine (Season Ended) 2024 03/04/20 21, 12/20/2015 Pneumococcal vaccine 65+ Completed 018, 01/30/2017, 12/20/2015 Procedures Procedure Name Priority Date/Time Associated Diagnosis Comments TOTAL TESTOSTERONE Routine 06/27/2024 12 :44 PM [employer] Prostate cancer (HCC) PSA, TOTAL AND FREE Routine 06/27/2024 1 2:44 PM [employer] Prostate cancer (HCC) PSA, TOTAL AND FREE Routine 05/24/2024 1 2:39 PM [employer] Prostate cancer (HCC) TOTAL TESTOSTERONE Routine 05/24/2024 12 :39 PM [employer] Prostate cancer (HCC) from Last 3 Months Results * PSA, total and free (06/27/2024 12:44 PM [employer]) PSA <0.1 < OR = 4.0 ng/mL [facility] PSA, free <0.1 ng/mL [facility] PSA, free UNABLE TO CALCULATE >25 % (calc) [facility] Comment: The free PSA level is below [...] 30 93 9 (3)Catalona et al.:LOR 277: 4908-0384 (1996) (4)Catalona et al.:LOR 279: 5778-9122 (1997) (x)These estimates vary with age, ethnicity, [...] mind. PSA was performed using the May[place] Immunoassay method. Values obtained from different assay methods cannot be used interchangeably. PSA levels, regardless of value, should not be interpreted as absolute evidence of the presence or absence of disease. Blood 06/27/2024 12:4 4 PM [employer] 06/27/2024 12:45 PM [employer] Sade Meza NP LAB BLOOD ORDERABLES F inal Result [facility] [address] [place] [address] * (ABNORMAL) Total testosterone (06/27/2024 12:44 PM [employer]) Testosterone 87(L) 250 - 827 ng/dL [facility] Comment: In hypogonadal males, Testosterone, Total, LC/MS/MS, is the recommended assay due to the diminished accuracy of immunoassay at levels below 250 ng/dL. This test code (10854) must be collected in a red-top tube with no gel. Blood 06/27/2024 12:4 4 PM [employer] 06/27/2024 12:45 PM [employer] Sade Meza FUR BUYER LAB BLOOD ORDERABLES F inal Result [facility] [address] [place] [address] * PSA, total and free (05/24/2024 12:39 PM [employer]) PSA <0.1 < OR = 4.0 ng/mL [facility] PSA, free <0.1 ng/mL [facility] PSA, free UNABLE TO CALCULATE >25 % (calc) [facility] Comment: The free PSA level is below detectable limits. We are unable to calculate a % free PSA. PSA(ng/mL) Free PSA(%) Estimated(x) Probability of Cancer(as%) 0-2.5 (*) Approx. 1 2.6-4.0(1) 0-27(2) 24(3) 4.1-10(4) 0-10 56 11-15 28 16-20 20 21-25 16 >or =26 8 >10(+) N/A >50 References:(1)Christopher et al.:Urology 60: 469-474 (2002) (2)Steveona et al.:J.Urol 168: 922-925 (2002) Free PSA(%) Sensitivity(%) Specificity(%) < or = 25 85 19 < or = 30 93 9 (3)Catalona et al.:LOR 277: 4669-6507 (1996) (4)Catalona et al.:LOR 279: 8403-2348 (1997) (x)These estimates vary with age, ethnicity, [...] of disease. Blood 05/24/2024 12:3 9 PM [employer] 05/24/2024 12:40 PM [employer] Sade Meza LAB BLOOD ORDERABLES F inal Result Performing Organization Address [facility] Co de Phone Number [facility] [address] [place] [address] * (ABNORMAL) Total testosterone (05/24/2024 12:39 PM [employer]) Testosterone 67(L) 250 - 827 ng/dL [facility] Comment: In hypogonadal males, Testosterone, Total, LC/MS/MS, is the recommended assay due to the diminished accuracy of immunoassay at levels below 250 ng/dL. This test code (27120) must be collected in a red-top tube with no gel. Blood 05/24/2024 12:3 9 PM [employer] 05/24/2024 12:40 PM [employer] Sade Meza LAB BLOOD ORDERABLES F inal Result Performing Organization Address City/[facility]/ZIP Co de Phone Number [facility] [address] [address] from Last 3 Months Insurance [facility] MDCR HMO REF [facility] Address: [facility] [address] [place] [address] [facility] MEDIC[facility] ADVANTAGE [facility] Address: [facility] [address] [place] [address] IDPA [facility] MEDICARE ADVANTAGE [facility] Address: [address] [address] [place] [address] [employer]PA Care Teams Bed And Breakfast Innkeeper Relationship Specialty Start Date End Date Yarelis Boyd MD PCP - General Family Medicine 04/05/21 Sade Meza NP [address] [facility] [address] [place] [address] Nurse Practitioner Nurse Practitioner 04/01/22 Fidencio Major MD [address] [facility] [address] [place] [address] Radiation Oncologist Radiation Oncology 09/02/22
--- OUTSIDE RECORDS SUMMARY | 2024-08-20 06:08 | XMS_ITS ---
Author Organization [facility] [address] [facility] Address [address] [place] [address] Care Team Providers Care Plant Control Operator Name Role Phone Yarelis Boyd MD Primary Care Provider [phone] Sade Meza NP Unavailable [phone] Fidencio Major MD Unavailable [phone] Active Problems Problem Noted Date Diagnosed Date [...]
[2024-08-20 06:20] VITALS: BP 137/67; PULSE 67; RESP 18; TEMP 36.5; O2SAT 100; BMI 29.7
[2024-08-20] MEDS: LACTATED RINGERS 1,000 ML 30 ML IV CONT (06:35)
[2024-08-20 06:38] LABS: Glucose Point of Care 145 mg/dl (65-105)
--- NOTE | 2024-08-20 07:31 | PM.HPGS ---
History of Present Illness History of Present Illness Consent: Risks, benefits, and alternatives have been discussed and questions answered. Patient agrees to proceed with procedure. Chief complaint: Spondylosis w/o Myelopathy or Radiculopathy,Spinal Narrative: Kunal Pearce is a 73 year old male with chronic, recalcitrant and disabling right lumbosacral back pain secondary to degenerative spondylosis with failure to respond to aggressive conservative measures including PT, oral and topical analgesics, opioid and nonopioid analgesics, rest, time and activity/behavioral modification over the past 1-2 years who presents for thermal RF ablation of the right L3, L4, L5 medial branches/dorsal ramus addressing the ipsilateral L4-5, L5-S1 facet joints under fluoroscopic guidance. Review of Systems Review of Systems: All systems reviewed & are unremarkable except as noted in HPI and below PMFSH Past Medical History Medical History Back pain Left knee pain Cervical spondylosis Diabetes type 2, controlled DJD of right shoulder Prostate cancer H/O squamous cell carcinoma Viral syndrome Encounter for immunization Depression Alcohol abuse Insomnia Obstructive sleep apnea syndrome Pure hypercholesterolemia Squamous cell carcinoma of forehead Surgical History Surgical History History of meniscectomy of left knee (~2017) History of total right hip arthroplasty (~2018) History of total left hip arthroplasty (~2019) Family History Family History Father Cerebrovascular accident Family history of lung cancer Patient's father is Family history of malignant neoplasm Mother Carcinoma of colon Family history of malignant neoplasm Sibling Family history of malignant neoplasm Other Diabetes mellitus Family history of arthritis Family history of cardiovascular disease Social History Social History Smoking packs per day: 1.5 Smoking cigarettes per day: 30.0 Years smoked: 30 Smoking pack-years: 45.00 Smoking status: Former smoker Tobacco type: cigarettes Second hand tobacco smoke exposure: Yes Smoking end date: 02/27/98 Additional smoking assessment comments: 1997 Alcohol intake: current Drinks per week: 7 Alcohol use details: 1-2 drinks most days a week Substance use: current Substance use type: marijuana Other substance usage details: Daily Last use: 02/06/23 Do You Feel Safe in your Home?: Yes Lack of Transportation: No Lack of Food: Sometimes True Current Housing: I Have Housing Concerned About Future Housing: No Difficulty Paying Gas/Electric Bills: YES Difficulty Paying for Meds: YES Currently Unemployed: No Education: Associate Degree Difficulty w/ Childcare or Family Care: YES Living arrangements: with family Additional living arrangements comments: Occupation/Education: retired Gender identity (if verbalized by the patient): Male Sexual Orientation (if Verbalized by the Patient): Straight or Heterosexual Spiritual care concerns: No Agree to blood products: Yes Meds Home Medications and Allergies Home Medications ?Medication ?Instructions ?Recorded ?Confirmed ?Type fluticasone propionate 50 See Rx Instructions .Route 05/30/22 08/20/24 Rx mcg/actuation nasal .COMPLEX #48 grams spray,suspension ascorbic acid (vitamin C) 1,000 mg 1 g PO DAILY 02/07/23 08/20/24 History tablet vitamin B complex 2 cap PO DAILY 02/07/23 08/20/24 History tamsulosin 0.4 mg capsule 0.4 mg PO BID 03/28/23 08/20/24 History blood sugar diagnostic (Blood #50 ea 07/05/23 08/19/24 Rx Glucose Test strips) blood-glucose meter (Accu-Chek #1 ea 07/05/23 08/19/24 Rx Guide Me Glucose Meter) lancets (Accu-Chek Softclix #200 ea 07/05/23 08/19/24 Rx Lancets) flash glucose sensor #1 ea 07/14/23 08/19/24 Rx blood sugar diagnostic (OneTouch #300 strips 01/18/24 08/19/24 Rx Verio test strips) nabumetone 750 mg tablet 750 mg PO BID #200 tabs 03/30/24 08/20/24 Rx gabapentin 400 mg capsule 400 mg PO BID #180 caps 05/09/24 08/20/24 Rx glimepiride 1 mg tablet 1 mg PO QAM PRN Hyperglycemia #100 06/21/24 08/20/24 Rx tabs zolpidem 10 mg tablet 10 mg PO .HS PRN insomnia #90 tabs 07/01/24 08/20/24 Rx blood-glucose sensor (FreeStyle #2 ea 08/07/24 08/19/24 Rx Shabbir 3 Sensor device) oxycodone-acetaminophen 10 mg-325 1 tablet PO Q4H PRN pain #180 tabs 08/07/24 08/20/24 Rx mg tablet cyclobenzaprine 5 mg tablet 5 mg PO TID PRN muscle spasm #270 08/19/24 08/20/24 Rx tabs metformin 500 mg tablet 1,000 mg (2 x 500 mg) PO BID #400 08/19/24 08/20/24 Rx tabs simvastatin 40 mg tablet 40 mg PO DAILY #100 tabs 08/19/24 08/20/24 Rx venlafaxine 37.5 mg 37.5 mg PO DAILY #30 caps 08/19/24 08/20/24 Rx capsule,extended release 24 hr Allergies Allergy/AdvReac Type Severity Reaction Status Date / Time No Known Allergies Allergy Verified 08/20/24 06:11 Vital Signs Vital Signs - 24 hr 08/20/24 06:20 Temperature 97.7 F Pulse Rate 67 Respiratory Rate 18 Blood Pressure 137/67 Pulse Oximetry 100 Oxygen Delivery Room Air Exam Narrative: The patient's physical exam is essentially unchanged from prior examination on 06/17/24. Specifically, patient demonstrates normal lung capacity, tidal volume and respiratory rate without wheezes, crackles, rales or rubs. Heart rate and rhythm are regular without murmurs, gallops or rubs. No JVD. Pulses 2+ globally without increasing peripheral edema. AAOx3 with no evidence of confusion, intoxication or altered mental state, NC/AT without acute distress or altered consciousness. Speech, cognition, mood, insight and judgment at baseline and within normal limits. Assessment and Plan Assessment and plan (1) Lumbosacral spondylosis: Code(s): M47.817 - Spondylosis without myelopathy or radiculopathy, lumbosacral region Status: Acute Assessment and Plan: proceed as planned with thermal RF ablation of the right L3, L4, L5 medial branches/dorsal ramus addressing the ipsilateral L4-5, L5-S1 facet joints under fluoroscopic guidance. (2) Chronic pain: Code(s): G89.29 - Other chronic pain Status: Acute
--- NOTE | 2024-08-20 07:33 | WPDHPUPDATE1 ---
History and Physical Update Update Date/Time: 08/20/24 07:33 History and Physical has been reviewed, including an updated exam of the patient. There are NO changes in the patient's condition. Risks, benefits, and alternatives have been discussed and questions answered. Patient agrees to proceed with procedure.
--- NOTE | 2024-08-20 07:34 | P.OP_ITS ---
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 Surgeon Mynor Baker MD Global Sourcing Manager None. Anesthesia Local (w/ MAC) Description of Procedure INFORMED CONSENT: Risks, benefits and alternatives to the procedure were discussed in detail with the patient who expressed explicit understanding and consent to proceed. Patient was informed verbally and in written form regarding the risks associated with the procedure including the low risk of serious infection, bleeding/bruising, allergic reaction, nerve or organ injury, paralysis, procedural site pain or discomfort, worsening pain and/or mobility, failure to treat and/or disfigurement. The patient expressed explicit understanding and consent to proceed. All materials required for the procedure were available prior to procedure start. Site and side were marked prior to procedure and confirmed in the presence of the patient. PROCEDURE IN DETAIL: The patient was brought to the procedural suite and placed in the prone position. Patient was made comfortable with use of pillows under the head/chest, hips and ankles. ASA standard monitors were applied and used throughout the procedure. Skin overlying the injection site on the affected side(s) was prepared broadly with ChloraPrep applicator and draped in a sterile manner. Aseptic technique was used throughout. The endplates of the vertebral bodies at the site(s) of interest were aligned in the AP view. Ipsilateral oblique angulation was utilized to optimize visualization of the intersection between the superior articulating process and transverse process at each target site. Local anesthesia was established by infiltration with approximately 5 mL of 1% lidocaine via a 1-1/2 inch 27-gauge needle divided over each site treated. A 16-gauge 100mm Lucidworksian RF needle with curved 10mm active tip was advanced in the AP view until the needle tip contacted the periosteum at the target site, the right L3 medial branch. Lateral view was utilized to adjust and confirm the appropriate placement of the needle tip just anterior to the facet line, superior to the pedicle and posterior to the foramen. Grounding electrode was in place and functioning. The appropriately-sized RF cannula was inserted into the RF needle and motor stimulation was performed with no subjective or objective evidence of recruited muscle activity with stimulation up to 2.0 volts at a frequency of 2Hz. 1.5 mL of 2.0% PF lidocaine was injected after negative aspiration. After a 90s pause, lesioning was performed to 90 degrees centigrade for 90s ensuring lack of symptoms in the extremity throughout. Needle was rotated 180 degrees and lesioning repeated in a similar manner. Patient tolerated this well. No parasthesias were elicited. Needle was removed completely intact without difficulty. The same procedure was repeated for all intended levels/ structures on the ipsilateral side, right L4, L5 medial branch/dorsal ramus with identical methodology, modified to compensate for new location, with similar results and no evidence of complication. Images were saved and documented in the patient chart. Patient's skin was cleansed and sterile bandage applied. The patient tolerated the procedure well. The patient was transported to the recovery area in stable condition where they were observed for an appropriate amount of time prior to discharge, without evidence of complication. The patient was instructed to avoid excessive activity for the next 48 hours, including climbing and frequent use of stairs. Showers only for 48 hours. They were instructed not to drive or operate heavy machinery for 24 hours. They are to monitor for severe headaches, fevers, chills, night sweats, erythema/swelling at the site or any other signs of infection, bleeding/bruising, bowel or bladder changes as well as new pain, weakness or numbness in the upper or lower extremity. Should they notice these changes, they are instructed to call our office immediately or report directly to the nearest Emergency Department if no answer or if after posted office hours. COMPLICATIONS: None COMMENTS: None Complications No immediate complications Condition Stable Disposition PACU [facility] Billing Surgery - Charge Forward: Surgery Billing
[2024-08-20] MEDS: LIDOCAINE 1% PF INJ 5 ML VIAL 10 ML INFILTRATE (08:00)
[2024-08-20] MEDS: BUPivacaine HCL 0.5% 10 ML AMP 5 ML INFILTRATE (08:00)
[2024-08-20] MEDS: LIDOCAINE 2% PF LOCAL INJ 5 ML VIAL INFILTRATE (08:01)
[2024-08-20 08:06] VITALS: BP 117/68; PULSE 58; RESP 15; O2SAT 99
--- NOTE | 2024-08-20 08:10 | WPDANESPN ---
Anes - Prog Note Post-Op Date/Time: 08/20/24 08:10 Cardiovascular status: normal Respiratory status: normal Airway patency: baseline Mental status: baseline Post-Op hydration status: normal Vital Signs: Last Vital Signs Temp 36.5 C 08/20/24 06:20 Pulse 67 08/20/24 06:20 Resp 18 08/20/24 06:20 BP 137/67 08/20/24 06:20 Pulse Ox 100 08/20/24 06:20 O2 Del Method Room Air 08/20/24 06:20 Pain Score (VAS): 0 08/20/24 06:30 POC Capillary Glucose 145 H Post-procedural complaints: none Patient Feedback: Patient satisfied with anesthetic care. Other Findings: Patient vital signs back to baseline. Patient denies nausea and vomiting. Patient's pain under control. Patient OK for discharge.
[2024-08-20 08:16] VITALS: BP 116/67; PULSE 56; RESP 14; O2SAT 95
[2024-08-20 08:26] VITALS: BP 114/81; PULSE 55; RESP 15; O2SAT 96
[2024-08-20 08:36] VITALS: BP 123/62; PULSE 54; RESP 15; O2SAT 98
== END 2024-08-20 08:45 | disposition home or self-care (01) ==
PROVIDERS: PCP Family Medicine; Visit Provider Anesthesiology Pain Medicine
PROC: (CPT 64635; principal; 2024-08-20 07:30)
DX: M47.817 Spondylosis without myelopathy or radiculopathy, lumbosacral region (principal); G89.29 Other chronic pain
CPT/HCPCS: 64635; 64636; 99199